=== PATIENT | female | born 1945 | race Caucasian/White ===

== ENCOUNTER 2020-02-06 08:04 | Outpatient (CLI) | payer MEDICARE, SELFPAY ==
[2020-02-06 08:23] LABS: Basophils Absolute Auto 0.1 K/mm3 (0.0-0.1); Basophils Percent Auto 0.7 % (0.2-1.2); Eosinophils Absolute Auto 0.2 K/mm3 (0-0.3); Eosinophils Percent Auto 2.1 % (0-4.4); Hematocrit 41.2 % (37.0-47.0); Hemoglobin 12.9 g/dL (12.0-15.0); Immature Granulocyte Absolute 0.06 K/mm3 (0.00-0.031); Immature Granulocyte Percent A 0.6 % (0-0.5); Lymphocytes Absolute Auto 4.08 K/mm3 (0.9-3.2); Lymphocytes Percent Auto 37.7 % (18.3-44.2); Mean Corpuscular HGB Conc 31.3 g/dl (32-36); Mean Corpuscular Hemoglobin 29.3 pg (26-34); Mean Corpuscular Volume 93.4 fl (80-100); Monocytes Absolute Auto 1.1 K/mm3 (0.1-0.6); Monocytes Percent Auto 10.2 % (2.6-8.5); Neutrophils Absolute Auto 5.3 K/mm3 (1.3-6.7); Neutrophils Percent Auto 48.7 % (45.5-73.1); Platelet Count Result 319 k/mm3 (150-375); Red Blood Count 4.41 M/mm3 (4.2-5.4); Red Cell Distribution Width 13.9 % (11.5-14.5); White Blood Count 10.8 K/mm3 (4.5-10.0)
[2020-02-06 11:52] LABS: Alanine Aminotransferase 23 U/L (4-35); Alkaline Phosphatase 84 U/L (38-126); Aspartate Amino Transferase 27 U/L (14-36); Bilirubin,Total 0.6 mg/dL (0.2-1.3); Blood Urea Nitrogen 44 mg/dL (7-17); Carbon Dioxide 28 mmol/L (22-30); Chloride 99 mmol/L (98-107); Estimated Glomerular Filt Rate 44; Glucose 281 mg/dL (65-105); Lactate Dehydrogenase 307 U/L (313-618); Potassium 4.3 mmol/L (3.4-5.0); Sodium 135 mmol/L (137-145)
== END 2020-02-06 08:05 | disposition home or self-care (01) ==
LOC: ANHLAB 08:05
PROVIDERS: PCP Internal Medicine; Visit Provider Internal Medicine Hematology & Oncology
DX: C85.17 Unspecified B-cell lymphoma, spleen (principal)
CPT/HCPCS: 36415; 80053; 83615; 85025

== ENCOUNTER 2020-08-08 08:32 | Outpatient (CLI) | payer MEDICARE, SELFPAY ==
[2020-08-08 09:36] LABS: Basophils Absolute Auto 0.1 K/mm3 (0.0-0.1); Basophils Percent Auto 0.7 % (0.2-1.2); Eosinophils Absolute Auto 0.2 K/mm3 (0-0.3); Hematocrit 41.2 % (37.0-47.0); Immature Granulocyte Absolute 0.06 K/mm3 (0.00-0.031); Immature Granulocyte Percent A 0.5 % (0-0.5); Lymphocytes Absolute Auto 3.79 K/mm3 (0.9-3.2); Lymphocytes Percent Auto 32.2 % (18.3-44.2); Mean Corpuscular HGB Conc 31.6 g/dl (32-36); Mean Corpuscular Hemoglobin 28.4 pg (26-34); Mean Corpuscular Volume 90.2 fl (80-100); Mean Platelet Volume 10.8 fl (7.4-10.4); Monocytes Absolute Auto 1.2 K/mm3 (0.1-0.6); Monocytes Percent Auto 9.9 % (2.6-8.5); Neutrophils Absolute Auto 6.4 K/mm3 (1.3-6.7); Neutrophils Percent Auto 54.7 % (45.5-73.1); Nucleated Red Blood Cells Perc 0.2 % (0.0-0.2); Platelet Count Result 329 k/mm3 (150-375); Red Blood Count 4.57 M/mm3 (4.2-5.4); Red Cell Distribution Width 14.2 % (11.5-14.5); White Blood Count 11.8 K/mm3 (4.5-10.0)
[2020-08-08 10:23] LABS: Alanine Aminotransferase 26 U/L (4-35); Alkaline Phosphatase 85 U/L (38-126); Anion Gap 10 mmol/L (8-16); Aspartate Amino Transferase 35 U/L (14-36); Bilirubin,Total 0.6 mg/dL (0.2-1.3); Blood Urea Nitrogen 23 mg/dL (7-17); Calcium 10.5 mg/dL (8.4-10.2); Carbon Dioxide 27 mmol/L (22-30); Chloride 99 mmol/L (98-107); Estimated Glomerular Filt Rate > 60; Glucose 267 mg/dL (65-105); Lactate Dehydrogenase 393 U/L (313-618); Potassium 4.9 mmol/L (3.4-5.0); Sodium 136 mmol/L (137-145)
== END 2020-08-08 08:33 | disposition home or self-care (01) ==
PROVIDERS: PCP Internal Medicine; Visit Provider Internal Medicine Hematology & Oncology
DX: C85.17 Unspecified B-cell lymphoma, spleen (principal)
CPT/HCPCS: 36415; 80053; 83615; 85025

== ENCOUNTER 2021-02-06 08:21 | Outpatient (CLI) | payer MEDICARE, SELFPAY ==
[2021-02-06 08:37] LABS: Basophils Absolute Auto 0.1 K/mm3 (0.0-0.1); Basophils Percent Auto 0.9 % (0.2-1.2); Eosinophils Absolute Auto 0.3 K/mm3 (0-0.3); Eosinophils Percent Auto 2.6 % (0-4.4); Hematocrit 40.9 % (37.0-47.0); Hemoglobin 12.8 g/dL (12.0-15.0); Immature Granulocyte Absolute 0.07 K/mm3 (0.00-0.031); Immature Granulocyte Percent A 0.6 % (0-0.5); Lymphocytes Absolute Auto 2.99 K/mm3 (0.9-3.2); Lymphocytes Percent Auto 27.1 % (18.3-44.2); Mean Corpuscular HGB Conc 31.3 g/dl (32-36); Mean Corpuscular Hemoglobin 27.3 pg (26-34); Mean Corpuscular Volume 87.2 fl (80-100); Monocytes Absolute Auto 1.2 K/mm3 (0.1-0.6); Neutrophils Absolute Auto 6.4 K/mm3 (1.3-6.7); Neutrophils Percent Auto 57.8 % (45.5-73.1); Platelet Count Result 382 k/mm3 (150-375); Red Blood Count 4.69 M/mm3 (4.2-5.4); Red Cell Distribution Width 14.7 % (11.5-14.5)
[2021-02-06 12:12] LABS: Alanine Aminotransferase 77 U/L (4-35); Albumin Level 3.8 g/dL (3.5-5.1); Alkaline Phosphatase 112 U/L (38-126); Anion Gap 7 mmol/L (8-16); Aspartate Amino Transferase 57 U/L (14-36); Bilirubin,Total 0.5 mg/dL (0.2-1.3); Blood Urea Nitrogen 25 mg/dL (7-17); Calcium 10.1 mg/dL (8.4-10.2); Carbon Dioxide 32 mmol/L (22-30); Chloride 99 mmol/L (98-107); Estimated Glomerular Filt Rate 54; Glucose 336 mg/dL (65-105); Lactate Dehydrogenase 412 U/L (313-618); Potassium 4.4 mmol/L (3.4-5.0); Sodium 138 mmol/L (137-145)
== END 2021-02-06 08:22 | disposition home or self-care (01) ==
LOC: ANHLAB 08:23
PROVIDERS: PCP Internal Medicine; Visit Provider Internal Medicine Hematology & Oncology
DX: C85.17 Unspecified B-cell lymphoma, spleen (principal)
CPT/HCPCS: 36415; 80053; 83615; 85025

== ENCOUNTER 2021-08-06 14:32 | Outpatient (CLI) | payer MEDICARE, SELFPAY ==
[2021-08-06 14:57] LABS: Basophils Absolute Auto 0.1 K/mm3 (0.0-0.1); Basophils Percent Auto 0.7 % (0.2-1.2); Eosinophils Absolute Auto 0.3 K/mm3 (0-0.3); Eosinophils Percent Auto 2.3 % (0-4.4); Hematocrit 42.8 % (37.0-47.0); Hemoglobin 13.2 g/dL (12.0-15.0); Immature Granulocyte Absolute 0.06 K/mm3 (0.00-0.031); Immature Granulocyte Percent A 0.5 % (0-0.5); Lymphocytes Absolute Auto 3.91 K/mm3 (0.9-3.2); Lymphocytes Percent Auto 32.5 % (18.3-44.2); Mean Corpuscular HGB Conc 30.8 g/dl (32-36); Mean Corpuscular Hemoglobin 27.3 pg (26-34); Mean Corpuscular Volume 88.6 fl (80-100); Mean Platelet Volume 10.6 fl (7.4-10.4); Monocytes Absolute Auto 1.4 K/mm3 (0.1-0.6); Monocytes Percent Auto 11.5 % (2.6-8.5); Neutrophils Absolute Auto 6.3 K/mm3 (1.3-6.7); Neutrophils Percent Auto 52.5 % (45.5-73.1); Platelet Count Result 365 k/mm3 (150-375); Red Blood Count 4.83 M/mm3 (4.2-5.4); Red Cell Distribution Width 14.6 % (11.5-14.5)
[2021-08-06 17:23] LABS: Alanine Aminotransferase 28 U/L (4-35); Albumin Level 4.3 g/dL (3.5-5.1); Alkaline Phosphatase 99 U/L (38-126); Anion Gap 9 mmol/L (8-16); Aspartate Amino Transferase 63 U/L (14-36); Bilirubin,Total 0.5 mg/dL (0.2-1.3); Blood Urea Nitrogen 27 mg/dL (7-17); Calcium 10.2 mg/dL (8.4-10.2); Carbon Dioxide 31 mmol/L (22-30); Chloride 100 mmol/L (98-107); Estimated Glomerular Filt Rate > 60; Glucose 175 mg/dL (65-110); Lactate Dehydrogenase 389 U/L (313-618); Potassium 4.1 mmol/L (3.4-5.0); Sodium 140 mmol/L (137-145)
== END 2021-08-06 14:33 | disposition home or self-care (01) ==
LOC: ANHLAB 14:33
PROVIDERS: PCP Internal Medicine; Visit Provider Internal Medicine Hematology & Oncology
DX: C85.17 Unspecified B-cell lymphoma, spleen (principal)
CPT/HCPCS: 36415; 80053; 83615; 85025

== ENCOUNTER 2021-11-04 16:02 | Emergency (ER) | payer MEDICARE, SELFPAY ==
--- NOTE | ~2021-11-04 | XR_ITS ---
EXAMINATION: XR chest 2V DATE: 11/04/2021 16:34 INDICATION: Chest pain. Cough. Fever. TECHNIQUE: Frontal and lateral views of the chest were obtained. COMPARISON: Chest single view 11/21/2017, chest CT 08/02/2019 FINDINGS: There are airspace opacities in the lower lung zones. No pleural effusion or pneumothorax. The heart size is normal. IMPRESSION: 1. Airspace opacities in the lower lung zones with worsening on the right from 11/21/2017, consistent with pneumonia versus chronic lung disease. Reviewed, dictated and finalized at location A. [facility]
[2021-11-04 16:06] VITALS: BP 151/67; PULSE 98; RESP 20; TEMP 36.7; O2SAT 99
--- NOTE | 2021-11-04 16:09 | ECG_ITS ---
Measurements Intervals [place] Rate: 94 P: 26 TN: 152 QRS: -38 QRSD: 118 T: 51 QT: 356 QTc: 445 Interpretive Statements SINUS RHYTHM LEFT AXIS DEVIATION INCOMPLETE LEFT BUNDLE BRANCH BLOCK BORDERLINE R WAVE PROGRESSION, ANTERIOR LEADS BASELINE ARTIFACT- I, III, AVR, AVL ABNORMAL ECG Electronically Signed On 11-04-2021 16:18:33 CASH APPLICATIONS SPECIALIST by Maicol Nguyen D.O.
[2021-11-04 19:11] VITALS: BP 136/63; PULSE 85; TEMP 35.9; O2SAT 98
[2021-11-04 19:34] LABS: Basophils Absolute Auto 0.1 K/mm3 (0.0-0.1); Basophils Percent Auto 0.3 % (0.2-1.2); Eosinophils Percent Auto 0.1 % (0-4.4); Hematocrit 30.9 % (37.0-47.0); Hemoglobin 10.1 g/dL (12.0-15.0); Immature Granulocyte Absolute 1.07 K/mm3 (0.00-0.031); Immature Granulocyte Percent A 5.3 % (0-0.5); Lymphocytes Absolute Auto 3.53 K/mm3 (0.9-3.2); Lymphocytes Percent Auto 17.5 % (18.3-44.2); Mean Corpuscular HGB Conc 32.7 g/dl (32-36); Mean Corpuscular Hemoglobin 25.8 pg (26-34); Mean Corpuscular Volume 78.8 fl (80-100); Mean Platelet Volume 10.2 fl (7.4-10.4); Monocytes Absolute Auto 3.4 K/mm3 (0.1-0.6); Monocytes Percent Auto 16.8 % (2.6-8.5); Nucleated Red Blood Cells Absolute Auto 0.1 K/mm3 (0.0-0.012); Nucleated Red Blood Cells Perc 0.2 % (0.0-0.2); Platelet Count Result 531 k/mm3 (150-375); Red Blood Count 3.92 M/mm3 (4.2-5.4); Red Cell Distribution Width 15.6 % (11.5-14.5); White Blood Count 20.1 K/mm3 (4.5-10.0)
[2021-11-04 19:45] LABS: Partial Thromboplastin Time 27.4 SECONDS (22.3-36.8)
[2021-11-04 19:46] LABS: Alanine Aminotransferase 60 U/L (4-35); Albumin Level 3.3 g/dL (3.5-5.1); Alkaline Phosphatase 259 U/L (38-126); Anion Gap 7 mmol/L (8-16); Aspartate Amino Transferase 75 U/L (14-36); Bilirubin,Total 1.3 mg/dL (0.2-1.3); Blood Urea Nitrogen 30 mg/dL (7-17); Calcium 10.6 mg/dL (8.4-10.2); Carbon Dioxide 30 mmol/L (22-30); Chloride 94 mmol/L (98-107); Estimated CRCL calculation 42 ml/min; Estimated Glomerular Filt Rate 49; Glucose 251 mg/dL (65-110); Lipase 96 U/L (23-300); Potassium 4.6 mmol/L (3.4-5.0); Sodium 131 mmol/L (137-145)
[2021-11-04 19:51] LABS: INR 1.1; Prothrombin Time 14.5 Seconds (11.1-14.7)
[2021-11-04 19:58] LABS: Troponin I < 0.012 ng/mL (0.000-0.034)
[2021-11-04 22:28] VITALS: BP 140/63; PULSE 89; O2SAT 98
[2021-11-04 23:15] LABS: Troponin I < 0.012 ng/mL (0.000-0.034)
[2021-11-05 01:45] VITALS: BP 130/60; PULSE 88; RESP 18; O2SAT 98
--- NOTE | 2021-11-05 02:01 | PC.NURSE ---
daughter arrives in triage to take pt home. pt and family tired for wait. vs stable. no resp distress. encouraged to return if symptoms change or worsen
== END 2021-11-05 02:18 | disposition left against medical advice (07) ==
PROVIDERS: Emergency Medicine; Emergency Provider Family Medicine; PCP Internal Medicine
DX: R07.9 Chest pain, unspecified (principal)
CPT/HCPCS: 36415; 71046; 80053; 83690; 84484; 85025; 85610; 85730; 93005; 99199

== ENCOUNTER 2021-12-10 20:24 | Inpatient (IN) | payer MEDICARE, SELFPAY ==
--- NOTE | ~2021-12-10 | BM_ITS ---
EXAMINATION: CCL bone marrow asp w bx diag DATE: 12/14/2021 10:09 INDICATION: Recurrent stage IV lymphoma. TECHNIQUE: A time-out was performed to verify the patient's name, date of , and procedure to b e performed. The procedure including the risks, benefits, and alternatives was discussed with the pat ient. Risks discussed included bleeding and infection. The patient understood the risks and agreed to proceed. The skin overlying the left ilium was prepped and draped in usual sterile fashion. Anesth etic was administered with 1% lidocaine subcutaneously. An 11 gauge needle was inserted into the iliu m with fluoroscopic guidance. Bone marrow was aspirated. An 8 gauge needle was then inserted into the ilium with fluoroscopic guidance. A core bone marrow biopsy was obtained. There were no immediate co mplications. Fluoroscopy exposure time was 0.1 minutes. The total number of images was 34. FINDINGS: Real-time fluoroscopy demonstrates a marker overlying the left posterior superior iliac spi ne. IMPRESSION: 1. Fluoro-guided bone marrow aspiration. 2. Fluoro-guided bone marrow core biopsy. Reviewed, dictated and finalized at location A. ECT MANAGEMENT INSTRUCTOR
--- NOTE | ~2021-12-10 | CT_ITS ---
EXAMINATION: CT abdomen pelvis w con DATE: 12/10/2021 22:09 INDICATION: Low abdominal pain. TECHNIQUE: Computed tomography (CT) of the abdomen and pelvis was performed with 100 mL Omnipaque 350 intravenous contrast. Automated exposure control and iterative reconstruction technique were employe d. The dose-length product was 1400.49 mGy-cm. COMPARISON: CT abdomen and pelvis 08/02/2019 FINDINGS: The visualized portions of the lung bases demonstrate small pleural effusions, left worse t trent right. There is mild dependent atelectasis on the left. The heart size is normal. No pericardial effusion. Again seen is a 3.3 x 1.7 cm mass in right breast, likely benign. The liver demonstrates a nodular surface contour, consistent with cirrhosis. The gallbladder is normal in size. The spleen is absent. The pancreas and adrenal glands are normal. There is cortical thinning of the kidneys. There are no dilated loops of bowel. The appendix is normal. There is a moderate volume of ascites. There a re bilateral inguinal hernias containing fat. There is right external iliac, right common iliac, aort ocaval, left para-aortic, periportal, and gastrohepatic lymphadenopathy. For example, a left para-aor tic node measures 3.9 x 2.5 cm that was previously normal. There is edema of the abdominal fat and cayden dy wall fat. There is severe thoracic and lumbar spondylosis. IMPRESSION: 1. Worsened abdominal and pelvic lymphadenopathy, consistent with lymphoma. 2. Cirrhosis of the liver. 3. Moderate volume of ascites. 4. Small pleural effusions. Reviewed, dictated and finalized at location E. [place] OPERATIONS MANAGER
--- NOTE | ~2021-12-10 | XR_ITS ---
EXAMINATION: XR chest 1V portable DATE: 12/13/2021 14:14 INDICATION: Dyspnea. TECHNIQUE: A single frontal view of the chest was obtained. COMPARISON: Chest 2 views 11/04/2021, CT abdomen and pelvis 08/09/2022 FINDINGS: There are airspace opacities in the mid and lower lung zones with a basilar predominance. N o pleural effusion or pneumothorax. The heart size is normal. There is widening of the superior media stinum. IMPRESSION: 1. Airspace opacities in the mid and lower lung zones with a basilar predominance, consistent with at electasis or less likely pneumonia. 2. Widening of the superior mediastinum suspicious for lymphadenopathy. Reviewed, dictated and finalized at location A. ATRIC SOCIAL WORKER IMPRESSION: 1. Airspace opacities in the mid and lower lung zones with a basilar predominan ce, consistent with atelectasis or less likely pneumonia. 2. Widening of the superior mediastinum suspicious for lymphadenopathy.
--- NOTE | ~2021-12-10 | US_ITS ---
EXAMINATION: US abdomen limited DATE: 12/12/2021 10:37 INDICATION: Ascites TECHNIQUE: Multiple grayscale and Doppler ultrasound images of the abdomen were obtained. COMPARISON: CT, 12/10/2021 FINDINGS: Patient presents for diagnostic paracentesis. Real-time scanning demonstrates a small amoun t of ascites. This was discussed with Dr. Hoang and it was felt that the risks of the procedure outw eighed the benefits. Therefore, paracentesis was not performed. IMPRESSION: 1. Small volume of ascites. Reviewed, dictated and finalized at location A. ACKUP ENGINEER IMPRESSION: 1. Small volume of ascites.
--- NOTE | ~2021-12-10 | US_ITS ---
EXAMINATION: US carotid duplex BI DATE: 12/14/2021 08:27 INDICATION: Syncope. TECHNIQUE: Grayscale, color Doppler, and pulsed Doppler images of the cervical carotid arteries were obtained. The degree of vessel stenosis is placed in one of the following categories: normal, <50%, 5 0-69%, >=70% but less than near-occlusion, near-occlusion, or total occlusion. Note that percent sten osis relative to normal distal artery lumen diameter is indirectly measured from velocity measurement s as described by Narinder, et al. Radiology 2003; 229:340-346. COMPARISON: None. FINDINGS: RIGHT: The right common carotid artery (CCA) peak systolic velocity (PSV) is 70 cm/s. The right internal car otid artery (ICA) PSV is 48 cm/s. The right ICA end-diastolic velocity (EDV) is 9 cm/s. The right ICA /CCA PSV ratio is 0.7. Grayscale and color Doppler images yield an estimate of <50% diameter reductio n from plaque in the ICA. There is antegrade flow in the right vertebral artery. LEFT: The left CCA PSV is 90 cm/s. The left ICA PSV is 84 cm/s. The left ICA EDV is 17 cm/s. The left ICA/C CA PSV ratio is 0.9. Grayscale and color Doppler images yield an estimate of <50% diameter reduction from plaque in the ICA. There is antegrade flow in the left vertebral artery. IMPRESSION: 1. <50% stenosis in the right internal carotid artery. 2. <50% stenosis in the left internal carotid artery. Reviewed, dictated and finalized at location A. NING TECHNOLOGIST
--- NOTE | ~2021-12-10 | CT_ITS ---
EXAMINATION: CT brain wo con DATE: 12/10/2021 22:08 INDICATION: Unresponsive. TECHNIQUE: Computed tomography (CT) of the head was performed without intravenous contrast. The mA wa s adjusted according to patient size. Iterative reconstruction technique was employed. The dose-lengt h product was 605.33 mGy-cm. COMPARISON: Head CT 11/22/2017 FINDINGS: There is no intracranial hemorrhage, acute infarction, or abnormal intracranial mass lesion . The ventricles are normal in size. The orbits are normal. There is mild mucosal thickening in the p aranasal sinuses. The mastoid air cells are normal. IMPRESSION: 1. Normal brain. Reviewed, dictated and finalized at location E. DITIONARY FIGHTING VEHICLE CREWMAN IMPRESSION: 1. Normal brain.
[2021-12-10 20:41] VITALS: BP 162/57; PULSE 90; RESP 22; TEMP 36.8; O2SAT 99
[2021-12-10 20:47] VITALS: O2SAT 95
--- NOTE | 2021-12-10 21:07 | PC.NURSE ---
family reports she was unresponsive at home
--- NOTE | 2021-12-10 21:11 | ECG_ITS ---
Measurements Intervals [place] Rate: 79 P: 23 TN: 139 QRS: -15 QRSD: 122 T: 36 QT: 408 QTc: 469 Interpretive Statements SINUS RHYTHM INTRAVENTRICULAR CONDUCTION DELAY DELAYED PRECORDIAL R/S TRANSITION BORDERLINE ECG Electronically Signed On 12-11-2021 6:26:03 POWER PLANT OPERATORS SUPERVISOR by Maicol Nguyen D.O.
[2021-12-10 21:26] LABS: Basophils Percent Auto 0.2 % (0.2-1.2); Eosinophils Percent Auto 0.1 % (0-4.4); Hematocrit 23.8 % (37.0-47.0); Hemoglobin 7.7 g/dL (12.0-15.0); Immature Granulocyte Absolute 0.23 K/mm3 (0.00-0.031); Immature Granulocyte Percent A 2.5 % (0-0.5); Immature Platelet Fraction Pct 15.3 % (0.9-11.2); Lymphocytes Absolute Auto 2.66 K/mm3 (0.9-3.2); Lymphocytes Percent Auto 28.8 % (18.3-44.2); Mean Corpuscular HGB Conc 32.4 g/dl (32-36); Mean Corpuscular Hemoglobin 26.6 pg (26-34); Mean Corpuscular Volume 82.4 fl (80-100); Monocytes Absolute Auto 0.8 K/mm3 (0.1-0.6); Monocytes Percent Auto 9.1 % (2.6-8.5); Neutrophils Absolute Auto 5.5 K/mm3 (1.3-6.7); Neutrophils Percent Auto 59.3 % (45.5-73.1); Nucleated Red Blood Cells Absolute Auto 0.1 K/mm3 (0.0-0.012); Platelet Count Result 102 k/mm3 (150-375); Red Blood Count 2.89 M/mm3 (4.2-5.4); Red Cell Distribution Width 22.8 % (11.5-14.5); White Blood Count 9.3 K/mm3 (4.5-10.0)
[2021-12-10 21:34] LABS: Alanine Aminotransferase 40 U/L (4-35); Albumin Level 2.2 g/dL (3.5-5.1); Alkaline Phosphatase 623 U/L (38-126); Anion Gap 1 mmol/L (8-16); Aspartate Amino Transferase 68 U/L (14-36); Bilirubin,Total 3.9 mg/dL (0.2-1.3); Blood Urea Nitrogen 26 mg/dL (7-17); Calcium 8.3 mg/dL (8.4-10.2); Carbon Dioxide 31 mmol/L (22-30); Chloride 99 mmol/L (98-107); Estimated CRCL calculation 66 ml/min; Estimated Glomerular Filt Rate > 60; Glucose 199 mg/dL (65-110); Lipase 103 U/L (23-300); Potassium 3.6 mmol/L (3.4-5.0); Sodium 131 mmol/L (137-145)
--- NOTE | 2021-12-10 21:37 | ED.ABDPAIN ---
HPI - Abdominal Pain General Chief Complaint: Abdominal Pain Stated Complaint: WEAKNESS, ABD PAIN, COVID 20 DAYS AGO Time Seen by Provider: 12/10/21 20:57 Source: patient History of Present Illness HPI narrative: Patient for a brief period of unresponsiveness. Patient was recently diagnosed with return of her lymphoma she was complaining of abdominal pain family gave her hydrocodone shortly after she was unresponsive they called EMS arrival patient had to wake up. And she was transferred to the ER for further evaluation. Patient reports she feels well now she denies any abdominal pain. Earlier today she had no concerns she denies any recent fevers, cough, congestion, shortness of breath, chest pain. Related Data Home Medications Medication Instructions Recorded Confirmed furosemide [Lasix] 20 mg PO DAILY 08/17/19 12/11/21 iqotfzopqsyv-opaq-yiabr acid 1 tablet PO DAILY 08/17/19 12/11/21 [Centrum] hydrocodone-acetaminophen See Rx Instructions .ROUTE 12/11/21 12/11/21 .COMPLEX PRN metoprolol succinate [Toprol XL] 50 mg PO DAILY 12/11/21 12/11/21 pantoprazole [Protonix] 40 mg PO DAILY 12/11/21 12/11/21 zinc oxide 1 applic TOPICAL QID PRN 12/11/21 12/11/21 Allergies Allergy/AdvReac Type Severity Reaction Status Date / Time No Known Allergies Allergy Unverified 10/08/19 16:30 Review of Systems Review of Systems: CONSTITUTIONAL: Denies fever, chills, or sweats. EYES: Denies visual changes, redness, or discharge. ENT: Denies rhinorrhea, congestion, sore throat, or otalgia. CARDIOVASCULAR: Denies chest pain, palpitations, or edema. RESPIRATORY: Denies cough or dyspnea. GASTROINTESTINAL: Denies abdominal pain, nausea, vomiting, or diarrhea. GENITOURINARY: Denies dysuria or hematuria. SKIN: Denies rash or itching. MUSCULOSKELETAL: Denies back pain, joint pain, or myalgia. NEUROLOGIC: Denies headache, numbness, dizziness, or weakness. PSYCHIATRIC: Denies anxiety or depression. All systems reviewed & are unremarkable except as noted in HPI and below PMFSH Family History Family History Other Diabetes mellitus Family history of elevated blood lipids Hypertension Social History Social History Smoking status: Never smoker Alcohol intake: never Exam Narrative: GENERAL: Well-appearing, well-nourished, and in no acute distress. HEAD: Normocephalic, atraumatic. EYES: PERRLA and EOMI. ENT: Nares clear, no rhinorrhea or epistaxis. Mucous membranes moist. NECK: Supple. No masses. No JVD CHEST: Clear to auscultation. No respiratory distress. No wheezes rales or rhonchi HEART: Regular rate and rhythm. No murmur heard. Normal peripheral pulses. ABDOMEN: Soft, nontender, nondistended, normal active bowel sounds. EXTREMITIES: Normal range of motion. No edema. SKIN: Warm, dry, no rash. NEURO: No focal deficits. Alert and oriented x3. PSYCH: Normal mood and affect. Course Reevaluation(s) Reevaluation #1: Patient is resting comfortably results of work-up reviewed with patient and family. Case also discussed with Dr. Tam. Patient is CBC does appear to be stable patient did have recent transfusions this week. Imaging shows ascites likely chronic may be contributing to patient's pain and likely related to patient's lymphoma. With stable findings patient is appropriate continued outpatient work-up with lymphoma. Family is comfortable with outpatient plan Just prior to discharge patient was concerned about their ability to care for the patient. Patient had difficult time assisting family members with sitting up and getting to a wheelchair. Due to family's concern patient will be admitted for weakness. Date: 12/11/21 Time: 01:13 Vital Signs Vital signs: Vital Signs Temperature 36.8 C 12/10/21 20:41 Pulse Rate 90 12/10/21 20:41 Respiratory Rate 22 H 12/10/21 20:41 Blood Pressure 162/57 H 12/01
[2021-12-10 22:20] LABS: Add Urine Microscopic? YES; Appearance Urine Clear (Clear); Bilirubin Urine Negative (Negative); Blood Urine Negative (Negative); Color Urine Amber (Yellow); Glucose Urine UA Negative (Negative); Ketones Urine Negative (Negative); Leukocyte Esterase Ur Negative LEU/UL (Negative); Nitrate Urine Negative (Negative); Protein Urine Negative (Negative); Urobilinogen Urine Negative mg/dL (<2.0)
[2021-12-10 22:26] VITALS: BP 133/60; PULSE 82; RESP 22; O2SAT 97
[2021-12-11] VITALS (11 sets, daily range): BP systolic 129–157; BP diastolic 53–109; PULSE 80–97; RESP 20–56; TEMP 36.4–37.3; O2SAT 90–98; BMI 34.4
--- NOTE | 2021-12-11 02:18 | PC.NURSE ---
attempted to discharge patient very drowsy opens eye does not answer questions family at bedside attempting to get family to help take patient into house.
[2021-12-11 04:04] LABS: SARS-CoV-2 RNA PCR Positive
--- NOTE | 2021-12-11 06:56 | ADMGEN ---
This patient, Denia Soria, was admitted to Medical Room 254-01. Patient/family oriented to hospital policies and general routines including ID bracelet, bed and alarms, visiting hours, pain management, procedures, bathroom and other care routines, personal items, smoking policy, room service/diet, and visiting hours. Information on how to activate the Rapid Response Team has been discussed. Patient/Family are encouraged to report perceived risks to care and to ask questions if they do not understand what they are told or what they should do.
[2021-12-11] MEDS: SODIUM CHLORIDE 0.9% IV 1,000 ML 125 ML IV CONT (06:58)
--- NOTE | 2021-12-11 09:14 | PM.IMHP ---
H&P: HPI History of Present Illness Date/Time: 12/11/21 09:14 Denia was resting in bed this morning when I went to examine her and visit with her. She did seem confused and changed her answers often regarding her health history. She was unable to tell me if she lived at home or in assisted living and at one point said she lived at [place]. She has 3+ pitting edema to her lower extremities but is having no difficulty breathing. She denies any abdominal pain during my exam even with palpation. I called and spoke with her daughter Nya Almonte. Denia has been living at home, the same home she has been in for 60+ years with her , the same home that she built with her . Her approximately 20 years ago. Nya her daughter had moved home to take care of her father and continues living with her mother. Denia spent 20 days inpatient at [facility] in [place] for COVID related issues. She was discharged a few days ago and has been home with Nya. The family has arranged 24 hour 7 day a week care for Denia, within her own home, plus home health PT, OT, RN also started after discharge from [facility] and they want to continue having home health come out. Yesterday, Denia complained of abdominal pain and [facility] had sent her home with [place] for abdominal pain. So the family gave her a dose, and she became so lethargic and unconscious and unresponsive, that the family brought her to the ER here. According to Nya, Denia has never been to a liver specialist for her cirrhosis or ascites. Denia does not drink alcohol of any form at all. She has no history of stroke or heart attack. She was sent home from [facility] on 20 mg of Lasix daily. Patient will have daily neuro evaluations by nursing staff, placed on fall risk and aspiration precautions, ordered a swallow evaluation with speech therapy, daily weights and strict I/O's. Her CT Imaging at admission to the ER showed Normal brain.Abdomen/Pelvis CT showed Worsened abdominal and pelvic lymphadenopathy, consistent with lymphoma. Cirrhosis of the liver.Moderate volume of ascites.Small pleural effusions. She is getting over COVID and a long hospitalization, checking a BNP and diurese. Consulted GI due to her cirrhosis of the liver, lethargy and weakness, elevated liver enzymes, and ascites. I continued her Lasix and will give her an extra dose today. Also consulted Oncology due to her worsening lymphadenopathy and return of lymphoma. UA clear, WBC 9.3, no fevers, no wounds or noted sources of infections. Will diurese with lasix 40 mg IV x1, place indwelling Valdivia catheter. Chief Complaint: Syncope, Ascites, Anemia, Cirrhosis of Liver Review of Systems Review of Systems: All systems reviewed & are unremarkable except as noted in HPI and below Constitutional: Constitutional: Reports as per HPI, Reports daytime sleepiness, Denies excessive sweating, Denies headache(s), Denies increased appetite, Reports lethargy, Reports malaise, Reports poor appetite, Denies snoring, Reports weakness and Denies weight gain Eyes: Eyes: Denies exophthalmos, Denies diplopia, Denies floaters and Denies loss of peripheral vision ENT: Reports Normal hearing present, Denies facial pain, Denies headache(s), Denies epistaxis, Denies odynophagia and Denies tinnitus Cardiovascular: Cardiovascular: Reports as per HPI, Reports pedal edema and Reports leg edema Respiratory: Respiratory: Reports dyspnea and Denies snoring Gastrointestinal: Gastrointestinal: Reports as per HPI, Reports abdominal pain, Denies melena and Denies odynophagia Genitourinary: Genitourinary: Reports as per HPI Musculoskeletal: Musculoskeletal: Reports as per HPI Integumentary/Breasts: Skin/Breast: Reports as per HPI Neurologic: Reports as per HPI and Denies headache(s) Psychiatric: Psychiatric: Reports as per HPI Endocrine: Endocrine: Denies excessive sweating PMFSH Family History F
[2021-12-11 10:26] LABS: Hematocrit 24.8 % (37.0-47.0); Hemoglobin 8.1 g/dL (12.0-15.0); Immature Platelet Fraction Pct 16.2 % (0.9-11.2); Mean Corpuscular HGB Conc 32.7 g/dl (32-36); Mean Corpuscular Hemoglobin 26.9 pg (26-34); Mean Corpuscular Volume 82.4 fl (80-100); Platelet Count Result 106 k/mm3 (150-375); Red Blood Count 3.01 M/mm3 (4.2-5.4); Red Cell Distribution Width 23.2 % (11.5-14.5); White Blood Count 9.8 K/mm3 (4.5-10.0)
[2021-12-11 10:42] LABS: Alanine Aminotransferase 35 U/L (4-35); Albumin Level 2.2 g/dL (3.5-5.1); Alkaline Phosphatase 506 U/L (38-126); Anion Gap 2 mmol/L (8-16); Aspartate Amino Transferase 60 U/L (14-36); Blood Urea Nitrogen 24 mg/dL (7-17); Calcium 8.1 mg/dL (8.4-10.2); Carbon Dioxide 28 mmol/L (22-30); Chloride 103 mmol/L (98-107); Estimated CRCL calculation 59 ml/min; Estimated Glomerular Filt Rate > 60; Glucose 192 mg/dL (65-110); Sodium 133 mmol/L (137-145)
[2021-12-11 13:48] LABS: Hematocrit 22.3 % (37.0-47.0); Hemoglobin 7.2 g/dL (12.0-15.0)
[2021-12-11 13:55] LABS: Magnesium 2.2 mg/dL (1.6-2.3); Phosphorus 3.2 mg/dL (2.5-4.5)
[2021-12-11 13:56] LABS: Ammonia < 9 umol/L (9-30)
--- NOTE | 2021-12-11 13:57 | PCOTNOTE ---
Attempted to see pt. for evaluation. Pt laying in bed and refused to participate.
[2021-12-11] MEDS: FUROSEMIDE INJ 40 MG/4 ML VIAL IV PUSH (14:27)
[2021-12-11] MEDS: LIDOCAINE 5% PATCH 3 PATCH TRANSDERM (14:27)
[2021-12-11 15:24] LABS: INR 1.6; Prothrombin Time 18.2 Seconds (11.1-14.7)
[2021-12-11 16:35] LABS: CRP 8.3 mg/dL (<1.0); Lactate Dehydrogenase 417 U/L (313-618)
[2021-12-11 16:38] LABS: NT Pro B Type Natriuretic Pept 4060 pg/mL (5-100)
--- NOTE | 2021-12-11 16:51 | WPDGICN ---
Assessment and Plan Assessment and plan (1) Decompensation of cirrhosis of liver: Code(s): K72.90 - Hepatic failure, unspecified without coma; K74.60 - Unspecified cirrhosis of liver Status: Acute Assessment and Plan: she had a recent prolonged hospitalization for COVID at another facility, probably could be lingering problems related to COVID in this patient who is immunocompromised (cirrhosis, h/o lymphoma with more enlarged lymph nodes noted by CT scan) we had to rule out infection, will get paracentesis to check if sbp also get hepatitis panel meld score 17 will be nice to get more records about recent hospitalization and previous history (2) Abdominal ascites: Qualifiers: Ascites type: other type Qualified Code(s): R18.8 - Other ascites Code(s): R18.8 - Other ascites Status: Acute Assessment and Plan: get paracentesis and check for sbp start low dose of diuretics (3) COVID-19: Code(s): U07.1 - COVID-19 Status: Acute Assessment and Plan: recent infection, risk for complications (4) Abdominal pain: Code(s): R10.9 - Unspecified abdominal pain Status: Acute Assessment and Plan: one of the reasons for admission (5) Lymphoma: Code(s): C85.90 - Non-Hodgkin lymphoma, unspecified, unspecified site Status: Acute Assessment and Plan: get LDH, we do not have a lot of information (6) Elevated liver enzymes: Code(s): R74.8 - Abnormal levels of other serum enzymes Status: Acute (7) Encephalopathy acute: Code(s): G93.40 - Encephalopathy, unspecified Status: Acute Assessment and Plan: amonia normal but given decompensated cirrhosis, will start on lactulose to see if will help with mentation (8) Anemia: Qualifiers: Anemia type: unspecified type Qualified Code(s): D64.9 - Anemia, unspecified Code(s): D64.9 - Anemia, unspecified Status: Acute Assessment and Plan: multifactorial probably from cirrhosis, lymphoma, recent covid infection, etc no overt gib but will monitor GI Consult Note Consult date/time: 12/11/21 16:51 HPI: Denia Soria is a 76 year old female with history of cirrhosis, lymphoma and recent hospitalization at [facility] for almost 20 days because COVID (I do not have records and patient is lethargic now). She was sent home with home health, apparently she complained of more abdominal pain then given narcotic and found to be more lethargic, taken to ER. CT scan a/p reviewed, showed worsened abdominal and pelvic lymphadenopathy, consistent with lymphoma, cirrhosis of the liver, moderate volume of ascites, small pleural effusions. Blood work inr 1.6, creat 0.8, bili 4, plat 106, hb 7.2. Valdivia catheter placed, she has leg edema and given diuretics. Amonia level normal. Review of Systems Review of Systems: ROS unobtainable: Yes unobtainable due to mental status PMFSH Past Medical History Medical History (Updated 12/11/21 @ 17:00 by Brice Ham MD) Abdominal pain COVID-19 Decompensation of cirrhosis of liver Elevated liver enzymes Encephalopathy acute Lymphoma Family History Family History Other Diabetes mellitus Family history of elevated blood lipids Hypertension Social History Social History Smoking status: Never smoker Second hand tobacco smoke exposure: No Alcohol intake: never Substance use: never Spiritual care concerns: Yes (Hoahaoism) Meds Home Medications and Allergies Home Medications Medication Instructions Recorded Confirmed Type furosemide [Lasix] 20 mg PO DAILY 08/17/19 12/11/21 History xbtnktngtabc-wlnu-ufbfg acid 1 tablet PO DAILY 08/17/19 12/11/21 History [Centrum] ferrous sulfate 142 mg PO DAILY 12/11/21 12/11/21 History hydrocodone-acetaminophen See Rx Instructions .ROUTE
[2021-12-11 17:08] LABS: Alveolar/Arterial O2 Gradient 44.7 mmHg; Fractional Inspired Oxygen 21 %; Oxygen Content ABG 10.4 %vol (16.0-22.0); Oxygen Saturation ABG 94.4 % (95.0-100.0); Oxyhemoglobin 90.3 % THb (90.0-100.0); PCO2 ABG 35.2 mmHg (35.0-45.0); PO2 ABG 62.9 mmHg (80.0-100.0); Total Hemoglobin 8.1 g/dL (12.0-18.0)
[2021-12-11 17:09] LABS: Device ROOM AIR; Modified Allen's Test Pass; Site Drawn RIGHT RADIAL; pH ABG 7.533 (7.350-7.450)
[2021-12-11] MEDS: KETOROLAC 15 MG/ML VIAL (*BKC) IV PUSH (17:38)
[2021-12-11] MEDS: LACTULOSE 20 GM/30 ML UDC PO (17:38)
--- NOTE | 2021-12-11 18:19 | PDONCCN ---
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 Patient also has a history of liver cirrhosis. She was recently discharged from the [facility] where she was admitted twice in last 2 months for pneumonia and UTI. She also had GI bleed and had colonoscopy done at [facility]. She received 2 units of packed red blood cell just 4 days ago for hemoglobin of 6.2. Nausea came back into the hospital with generalized weakness. She denies fevers and chills. She denies any bleeding including melena and hematochezia. She has been complaining of abdominal distention. Labs showed hemoglobin of 7.7 now dropped down to 7.2. Platelet count [id number]. WBC count normal at 9.8. Liver enzymes were elevated with elevated bilirubin and alkaline phosphatase. CT abdomen and pelvis showed worsened abdominal and pelvic lymphadenopathy consistent with lymphoma along with liver cirrhosis and moderate volume of ascites. There was 3.3 x 1.7 cm mass in the right breast. Review of Systems - Review of Systems All systems reviewed & are unremarkable except as noted in HPI and bel - Neurologic Reports hearing normal, Reports weakness, Denies headache(s) [facility] Medical History: Medical History (Last Updated 12/11/21 @ 17:00 by Brice Ham MD) Abdominal pain COVID-19 Decompensation of cirrhosis of liver Elevated liver enzymes Encephalopathy acute Lymphoma Family History: Family History (Last Reviewed 12/11/21 @ 14:40 by Sydnee Leiva NP) Other Diabetes mellitus Family history of elevated blood lipids Hypertension - Social History Social History: Social History (Last Reviewed 12/10/21 @ 21:39 by Torsten Whitten MD) Alcohol Use: Alcohol intake: never Substance Use: Substance use: never Others: Spiritual care concerns: Yes Spiritual care concerns comment: Baptism Smoking Status: Smoking status: Never smoker Second hand tobacco smoke exposure: No Meds Home Medications Medication Instructions Recorded Confirmed Type furosemide [Lasix] 20 mg PO DAILY 08/17/19 12/11/21 History afelqmrsxfxt-fpwm-rdean acid 1 tablet PO DAILY 08/17/19 12/11/21 History [Centrum] ferrous sulfate 142 mg PO DAILY 12/11/21 12/11/21 History hydrocodone-acetaminophen See Rx Instructions .ROUTE 12/11/21 12/11/21 History .COMPLEX PRN metoprolol succinate [Toprol XL] 50 mg PO DAILY 12/11/21 12/11/21 History pantoprazole [Protonix] 40 mg PO DAILY 12/11/21 12/11/21 History zinc oxide 1 applic TOPICAL QID PRN 12/11/21 12/11/21 History Allergies Allergy/AdvReac Type Severity Reaction Status Date / Time acetaminophen AdvReac Severe Loss of Verified 12/11/21 13:17 [From Panlor Consciousness (hydrocodone-acetamin)] hydrocodone AdvReac Severe Loss of Verified 12/11/21 13:17 [From Panlor Consciousness (hydrocodone-acetamin)] Results - Labs CBC & Chem 7: 12/11/21 13:28 12/11/21 10:07 Labs: Short CBC 12/10/21 12/11/21 12/11/21 Range/Units 21:16 10:07 13:28 WBC 9.3 9.8 (4.5-10.0) K/mm3 Hgb 7.7 L 8.1 L 7.2 L (12.0-15.0) g/dL Hct 23.8 L 24.8 L 22.3 L (37.0-47.0) % Plt Count 102 L D 106 L (150-375) k/mm3 BMP 12/10/21 12/11/21 21:16 10:07 Sodium 131 L 133 L Potassium 3.6 4.0 Chloride 99 103 Carbon Dioxide 31 H 28 BUN 26 H 24 H Creatinine 0.90 0.80 Glucose 199 H 192 H Calcium 8.3 L 8.1 L Liver Function 12/10/21 12/11/21 Range/Units 21:16 10:07 Total Bilirubin 3.9 H 4.0 H (0.2-1.3) mg/dL AST 68 H 60 H (14-36) U/L ALT 40 H 35 (4-35) U/L Alkaline Phosphatase 623 H 506
[2021-12-11 18:24] LABS: Ferritin > 2000.00 ng/mL (11.1-264)
[2021-12-12] VITALS (10 sets, daily range): BP systolic 125–150; BP diastolic 47–62; PULSE 78–94; RESP 18–20; TEMP 36.4–36.9; O2SAT 92–95
[2021-12-12 05:40] LABS: Basophils Percent Auto 0.1 % (0.2-1.2); Eosinophils Percent Auto 0.1 % (0-4.4); Hematocrit 22.4 % (37.0-47.0); Hemoglobin 7.2 g/dL (12.0-15.0); Immature Granulocyte Absolute 0.25 K/mm3 (0.00-0.031); Immature Granulocyte Percent A 2.6 % (0-0.5); Immature Platelet Fraction Pct 15.8 % (0.9-11.2); Lymphocytes Percent Auto 25.9 % (18.3-44.2); Mean Corpuscular HGB Conc 32.1 g/dl (32-36); Mean Corpuscular Hemoglobin 26.7 pg (26-34); Monocytes Absolute Auto 0.7 K/mm3 (0.1-0.6); Monocytes Percent Auto 7.4 % (2.6-8.5); Neutrophils Absolute Auto 6.2 K/mm3 (1.3-6.7); Neutrophils Percent Auto 63.9 % (45.5-73.1); Nucleated Red Blood Cells Absolute Auto 0.1 K/mm3 (0.0-0.012); Nucleated Red Blood Cells Perc 0.9 % (0.0-0.2); Platelet Count Result 101 k/mm3 (150-375); Red Cell Distribution Width 22.9 % (11.5-14.5); White Blood Count 9.7 K/mm3 (4.5-10.0)
[2021-12-12 05:49] LABS: Alanine Aminotransferase 36 U/L (4-35); Alkaline Phosphatase 468 U/L (38-126); Anion Gap 5 mmol/L (8-16); Aspartate Amino Transferase 45 U/L (14-36); Bilirubin,Total 3.8 mg/dL (0.2-1.3); Blood Urea Nitrogen 21 mg/dL (7-17); Calcium 8.1 mg/dL (8.4-10.2); Carbon Dioxide 31 mmol/L (22-30); Chloride 99 mmol/L (98-107); Estimated CRCL calculation 58 ml/min; Estimated Glomerular Filt Rate > 60; Glucose 156 mg/dL (65-110); Lactate Dehydrogenase 396 U/L (313-618); Potassium 3.3 mmol/L (3.4-5.0); Sodium 135 mmol/L (137-145)
[2021-12-12 05:55] LABS: NT Pro B Type Natriuretic Pept 4480 pg/mL (5-100)
[2021-12-12 06:36] LABS: Hepatitis B Surface Antigen Negative (Negative)
[2021-12-12 06:42] LABS: HAV RESULT Negative (Negative); Hepatitis B Core IgM Result Negative (Negative)
[2021-12-12 06:53] LABS: Iron 18 ug/dL (37-170)
[2021-12-12 06:54] LABS: Hepatitis C Virus Antibody Negative (Negative)
[2021-12-12 07:02] LABS: Percent Iron Saturation 14 % (20-50)
[2021-12-12 08:13] LABS: Platelet Estimate Decreased (Adequate); Target Cells 2+ (NORMAL)
[2021-12-12] MEDS: FERROUS SULFATE DRIED 142 MG TABCR PO (09:14)
[2021-12-12] MEDS: SPIRONOLACTONE 50 MG TABLET PO (09:14)
[2021-12-12] MEDS: METOPROLOL SUCCINATE EXT REL 50 MG TABCR PO (09:15)
[2021-12-12] MEDS: PANTOPRAZOLE 40 MG TABLET PO (09:15)
[2021-12-12] MEDS: FUROSEMIDE 20 MG TABLET PO (09:15)
[2021-12-12] MEDS: MULTIVITAMINS /C LUTEIN (CENTRUM SILVER) TABLET *BKC 1 TAB PO (09:15)
[2021-12-12] MEDS: POTASSIUM CHLORIDE 20 MEQ TABLET PO (09:18)
[2021-12-12] MEDS: LIDOCAINE 5% PATCH 3 PATCH TRANSDERM (09:18)
[2021-12-12] MEDS: LACTULOSE 20 GM/30 ML UDC PO ×2 (09:18→16:09)
--- NOTE | 2021-12-12 09:57 | PCSTNOTE ---
Attempted to see this patient in the morning for a bedside swallow evaluation. The patient took x1 pill with x1 sip of water without difficulty. RODDY Ortiz informed that she is not allowed to eat anything or drink more than a sip as she has testing to be completed now.
--- NOTE | 2021-12-12 11:24 | PCSTNOTE ---
Please refer to the Bedside Swallow Evaluation in the EMR. Please note, silent aspiration cannot be ruled out at bedside. Recommend Level 7 easy to chew and level [address] indicated.
--- NOTE | 2021-12-12 11:40 | WPDGIPROGNO ---
Progress Note: A&P Assessment and Plan (1) Decompensation of cirrhosis of liver: Code(s): K72.90 - Hepatic failure, unspecified without coma; K74.60 - Unspecified cirrhosis of liver Status: Acute Assessment and Plan: she had prolonged hospitalization after had COVID infection, also had colonoscopy at another hospital only small amount of ascites not enough to get paracentesis she seems more alert today, started on lactulose even though ammonia level was normal ? SHAFER cirrhosis, hepatitis panel negative will need follow-up with her gi specialist (2) Elevated liver enzymes: Code(s): R74.8 - Abnormal levels of other serum enzymes Status: Acute Assessment and Plan: CT scan reviewed, also noted progression on lymphoma oncology on board (3) Abdominal pain: Code(s): R10.9 - Unspecified abdominal pain Status: Acute Assessment and Plan: better today ok to start 2g na, DM diet (4) Encephalopathy acute: Code(s): G93.40 - Encephalopathy, unspecified Status: Acute Assessment and Plan: multifactorial, recent covid infection and use of narcotics, also could be PSE- started on lactulose (5) COVID-19: Code(s): U07.1 - COVID-19 Status: Acute (6) Abdominal ascites: Qualifiers: Ascites type: other type Qualified Code(s): R18.8 - Other ascites Code(s): R18.8 - Other ascites Status: Acute Assessment and Plan: small amount on low dose of diuretics 2g na diet (7) B-cell lymphoma of spleen: Code(s): C85.17 - Unspecified B-cell lymphoma, spleen Status: Acute Assessment and Plan: oncology on board, may need BM biopsy also noted mass in breast (8) Lymphoma: Code(s): C85.90 - Non-Hodgkin lymphoma, unspecified, unspecified site Status: Acute Subjective Date/time seen: 12/12/21 11:40 Interval history: abdominal ultrasound only small ascites not enough to get fluid. She is more awake and interacting today, less abdominal pain. Review of Systems Review of Systems: All systems reviewed & are unremarkable except as noted in HPI and below Exam Const: General: ill appearing chronically Other: comfortable, more alert today HENMT: General nose exam: Normal nares present Eyes: Pupils: Equal, round and reactive pupils present Neck: Neck: supple Resp: Auscultation: clear to auscultation bilaterally Cardio: Rate: regular rate GI: GI Palp: Yes Soft to palpation Auscultation: normal bowel sounds Other: obese, less tender, no rebound Skin: General skin exam: no rashes or lesions noted Neuro: Other: soft voice but talking more and alert Extrem: General: pedal edema bilaterally Psych: Affect: No Hostile affect present Objective Data Vital Signs Vital Signs: Vital Signs - 24 hr 12/11/21 14:30 12/11/21 16:00 12/11/21 17:00 Temperature 97.8 F Pulse Rate 91 83 Respiratory Rate 56 H Blood Pressure 157/61 H Pulse Oximetry 95 94 12/11/21 18:54 12/11/21 19:51 12/11/21 20:00 Temperature 99.1 F 97.9 F Pulse Rate 92 85 84 Respiratory Rate 20 20 Blood Pressure 148/62 H 138/53 L Pulse Oximetry 95 90 12/12/21 00:00 12/12/21 04:00 12/12/21 04:03 Temperature 97.6 F Pulse Rate 87 94 94 Respiratory Rate 20 Blood Pressure 150/62 H Pulse Oximetry 93 12/12/21 09:15 Temperature Pulse Rate 86 Respiratory Rate Blood Pressure Pulse Oximetry Intake/Output Intake/Output: Intake & Output 12/09/21 12/10/21 12/11/21 12/12/21 23:59 23:59 23:59 23:59 Intake Total 970 0 Output Total 750 300 Balance 220 -300 Meds/Results Medications: Active Medications Generic Name Dose Route Start Last Admin Trade Name Freq PRN Reason Stop Dose Admin Ferrous Sulfate 142 mg 12/12/21 09:00 12/12/21 09:14 Ferrous Sulfate Dried 142 Mg Tabcr PO 142 mg DAILY LOUIS Administration Furosemide 20 mg 12/12/21 09:00 12/12/21 09:15 Furosemi
--- NOTE | 2021-12-12 12:37 | PM.IMPN ---
Progress Note: A&P Assessment and Plan (1) Anemia: Qualifiers: Anemia type: unspecified type Qualified Code(s): D64.9 - Anemia, unspecified Code(s): D64.9 - Anemia, unspecified Status: Acute Assessment and Plan: 12/12 hgb stable at 7.2 (2) Syncope: Qualifiers: Syncope type: unspecified Qualified Code(s): R55 - Syncope and collapse Code(s): R55 - Syncope and collapse Status: Acute Assessment and Plan: Likely multifactoral: anemia, post-COVID, poor nutrition, intra-abdominal and pelvic masses No recurrence since admission (3) Abdominal ascites: Qualifiers: Ascites type: other type Qualified Code(s): R18.8 - Other ascites Code(s): R18.8 - Other ascites Status: Acute Assessment and Plan: Likely malignant Unable to obtain fluid with u/s (4) Cirrhosis of liver: Qualifiers: Hepatic cirrhosis type: unspecified hepatic cirrhosis Ascites presence: with ascites Qualified Code(s): K74.60 - Unspecified cirrhosis of liver; R18.8 - Other ascites Code(s): K74.60 - Unspecified cirrhosis of liver Status: Acute Assessment and Plan: Continue furosemide (5) B-cell lymphoma of spleen: Qualifiers: B-cell lymphoma type: unspecified B-cell Qualified Code(s): C85.17 - Unspecified B-cell lymphoma, spleen Code(s): C85.17 - Unspecified B-cell lymphoma, spleen Status: Acute Assessment and Plan: Likely recurrent Bone marrow biopsy might be the most expeditious means of confirmation Subjective Date/time seen: 12/12/21 12:37 Interval history: 12/12 visit: Poor appetite. Chronic leg swelling about the same. Mild generalized abdominal discomfort. Radiology could not safely extract any ascites as there was only a small amount of fluid. She has deep retroperitoneal nodes there would also be difficult to biopsy with imaging. Review of Systems Review of Systems: All systems reviewed & are unremarkable except as noted in HPI and below Exam Narrative: GENERAL: Well-appearing, well-nourished, and in no acute distress. HEAD: Normocephalic, atraumatic. Eschar left lateral lower lip EYES: PERRLA and EOMI. ENT: Nares clear, no rhinorrhea or epistaxis. Mucous membranes moist. NECK: Supple. No masses. No JVD CHEST: Clear to auscultation. No respiratory distress. No wheezes rales or rhonchi HEART: Regular rate and rhythm. No murmur heard. Normal peripheral pulses. ABDOMEN: Soft, nontender, protuberant but soft, normal active bowel sounds. EXTREMITIES: 3+ pitting edema legs-feet SKIN: Warm, dry, no rash. NEURO: No focal deficits. Alert and oriented x3. PSYCH: Normal mood and affect. Objective Data Vital Signs Vital Signs: Vital Signs - 24 hr 12/11/21 14:30 12/11/21 16:00 12/11/21 17:00 Temperature 97.8 F Pulse Rate 91 83 Respiratory Rate 56 H Blood Pressure 157/61 H Pulse Oximetry 95 94 12/11/21 18:54 12/11/21 19:51 12/11/21 20:00 Temperature 99.1 F 97.9 F Pulse Rate 92 85 84 Respiratory Rate 20 20 Blood Pressure 148/62 H 138/53 L Pulse Oximetry 95 90 12/12/21 00:00 12/12/21 04:00 12/12/21 04:03 Temperature 97.6 F Pulse Rate 87 94 94 Respiratory Rate 20 Blood Pressure 150/62 H Pulse Oximetry 93 12/12/21 09:15 Temperature Pulse Rate 86 Respiratory Rate Blood Pressure Pulse Oximetry Intake/Output Intake/Output: Intake & Output 12/09/21 12/10/21 12/11/21 12/12/21 23:59 23:59 23:59 23:59 Intake Total 970 0 Output Total 750 300 Balance 220 -300 Meds/Results Medications: Active Medications Generic Name Dose Route Start Last Admin Trade Name Saeq PRN Reason Stop Dose Admin Ferrous Sulfate 142 mg 12/12/21 09:00 12/12/21 09:14 Ferrous Sulfate Dried 142 Mg Tabcr PO 142 mg DAILY LOUIS Administration Furosemide 20 mg 12/12/21 09:00 12/12/21 09:15 Furosemide 20 Mg Tablet PO 20 mg VERN
[2021-12-13] VITALS (17 sets, daily range): BP systolic 131–147; BP diastolic 50–74; PULSE 79–119; RESP 16–46; TEMP 36.1–36.6; O2SAT 92–99
[2021-12-13 05:13] LABS: Basophils Percent Auto 0.2 % (0.2-1.2); Hematocrit 22.3 % (37.0-47.0); Hemoglobin 7.1 g/dL (12.0-15.0); Immature Granulocyte Absolute 0.42 K/mm3 (0.00-0.031); Immature Granulocyte Percent A 3.7 % (0-0.5); Immature Platelet Fraction Pct 15.4 % (0.9-11.2); Lymphocytes Absolute Auto 3.37 K/mm3 (0.9-3.2); Mean Corpuscular HGB Conc 31.8 g/dl (32-36); Mean Corpuscular Hemoglobin 26.6 pg (26-34); Mean Corpuscular Volume 83.5 fl (80-100); Mean Platelet Volume 13.8 fl (7.4-10.4); Monocytes Percent Auto 8.9 % (2.6-8.5); Neutrophils Absolute Auto 6.4 K/mm3 (1.3-6.7); Neutrophils Percent Auto 57.2 % (45.5-73.1); Nucleated Red Blood Cells Absolute Auto 0.1 K/mm3 (0.0-0.012); Platelet Count Result 109 k/mm3 (150-375); Red Blood Count 2.67 M/mm3 (4.2-5.4); Red Cell Distribution Width 23.2 % (11.5-14.5); White Blood Count 11.2 K/mm3 (4.5-10.0)
[2021-12-13 05:39] LABS: Alanine Aminotransferase 32 U/L (4-35); Alkaline Phosphatase 450 U/L (38-126); Anion Gap 5 mmol/L (8-16); Aspartate Amino Transferase 41 U/L (14-36); Bilirubin,Total 4.4 mg/dL (0.2-1.3); Blood Urea Nitrogen 22 mg/dL (7-17); Calcium 8.2 mg/dL (8.4-10.2); Carbon Dioxide 29 mmol/L (22-30); Chloride 105 mmol/L (98-107); Estimated CRCL calculation 52 ml/min; Estimated Glomerular Filt Rate > 60; Glucose 164 mg/dL (65-110); Potassium 3.6 mmol/L (3.4-5.0); Sodium 139 mmol/L (137-145)
[2021-12-13 05:46] LABS: NT Pro B Type Natriuretic Pept 5350 pg/mL (5-100)
[2021-12-13 07:13] LABS: Atypical Lymphocytes Present; Platelet Estimate Decreased (Adequate); Target Cells 2+ (NORMAL)
--- NOTE | 2021-12-13 09:00 | PC.NURSE ---
Patient was in the chair working with the MAIL PROCESSING MACHINE OPERATOR on bathing. Patient was assisting an cooperative. During bath became unresponsive in the chair. Approximate time of incident was 0855. Staff assist called and patient transferred to bed. Dr Hoang called and reported to the room. Vitals and blood glucose taken. See vital signs. Patient stabilized. Dr. Hoang will place orders.
[2021-12-13 09:04] LABS: Glucose Point of Care 158 mg/dl (65-105)
[2021-12-13] MEDS: SPIRONOLACTONE 50 MG TABLET PO (09:10)
[2021-12-13] MEDS: LACTULOSE 20 GM/30 ML UDC PO ×2 (09:10→17:02)
[2021-12-13] MEDS: FUROSEMIDE 20 MG TABLET PO (09:10)
[2021-12-13] MEDS: PANTOPRAZOLE 40 MG TABLET PO (09:10)
[2021-12-13] MEDS: METOPROLOL SUCCINATE EXT REL 50 MG TABCR PO (09:10)
[2021-12-13] MEDS: MULTIVITAMINS /C LUTEIN (CENTRUM SILVER) TABLET *BKC 1 TAB PO (09:10)
[2021-12-13] MEDS: FERROUS SULFATE DRIED 142 MG TABCR PO (09:11)
[2021-12-13] MEDS: LIDOCAINE 5% PATCH 3 PATCH TRANSDERM (09:11)
--- NOTE | 2021-12-13 09:12 | PM.IMPN ---
Progress Note: A&P Assessment and Plan (1) Anemia: Qualifiers: Anemia type: unspecified type Qualified Code(s): D64.9 - Anemia, unspecified Code(s): D64.9 - Anemia, unspecified Status: Acute Assessment and Plan: 12/12 hgb stable at 7.2 (2) Syncope: Qualifiers: Syncope type: unspecified Qualified Code(s): R55 - Syncope and collapse Code(s): R55 - Syncope and collapse Status: Acute Assessment and Plan: Likely multifactoral: anemia, post-COVID, poor nutrition, intra-abdominal and pelvic masses 12/13 recurrence while bathing. Hemoglobin 7.1 so 1 unit packed red cells ordered for symptomatic anemia. Check orthostatic blood pressure. (3) Abdominal ascites: Qualifiers: Ascites type: other type Qualified Code(s): R18.8 - Other ascites Code(s): R18.8 - Other ascites Status: Acute Assessment and Plan: Likely malignant Unable to obtain fluid with u/s (4) Cirrhosis of liver: Qualifiers: Hepatic cirrhosis type: unspecified hepatic cirrhosis Ascites presence: with ascites Qualified Code(s): K74.60 - Unspecified cirrhosis of liver; R18.8 - Other ascites Code(s): K74.60 - Unspecified cirrhosis of liver Status: Acute Assessment and Plan: Continue furosemide spironolactone and lactulose. 12/13 additional 20 mg IV furosemide x1. (5) B-cell lymphoma of spleen: Qualifiers: B-cell lymphoma type: unspecified B-cell Qualified Code(s): C85.17 - Unspecified B-cell lymphoma, spleen Code(s): C85.17 - Unspecified B-cell lymphoma, spleen Status: Acute Assessment and Plan: Likely recurrent Bone marrow biopsy discussed with her demand generator manager, Dr. Tam, and he would like to proceed tomorrow. Subjective Date/time seen: 12/13/21 09:12 Interval history: 12/13 visit: Syncopal episode while sitting in chair bathing with QUENCHING CAR OPERATOR. Raised right arm and had generalized shaking. Staff had to lift her back to bed. Awakened immediately. No postictal state. Very tired. No injury or incontinence. Chronic leg swelling about the same. Mild generalized abdominal discomfort. 12/12 Radiology could not safely extract any ascites as there was only a small amount of fluid. She has deep retroperitoneal nodes there would also be difficult to biopsy with imaging. Review of Systems Review of Systems: All systems reviewed & are unremarkable except as noted in HPI and below Exam Narrative: GENERAL: Chronically ill-appearing elderly female in no acute distress. HEAD: Sclerae nonicteric. Eschar left lateral lower lip EYES: PERRLA and EOMI. ENT: Nares clear, no rhinorrhea or epistaxis. Mucous membranes moist. NECK: Supple. No masses. No JVD CHEST: Diminished breath sounds at bases. No respiratory distress. No wheezes rales or rhonchi HEART: Regular rate and rhythm. No murmur heard. Normal peripheral pulses. ABDOMEN: Soft, nontender, protuberant but soft, normal active bowel sounds. EXTREMITIES: 3+ pitting edema legs-feet SKIN: Warm, dry, no rash. NEURO: No focal deficits. Alert and oriented x3. PSYCH: Blunted affect. Objective Data Vital Signs Vital Signs: Vital Signs - 24 hr 12/12/21 09:15 12/12/21 12:01 12/12/21 14:44 Temperature 97.6 F Pulse Rate 86 79 88 Respiratory Rate Blood Pressure 143/52 H Pulse Oximetry 95 12/12/21 16:00 12/12/21 19:42 12/12/21 20:00 Temperature 98.4 F Pulse Rate 80 88 91 Respiratory Rate 18 Blood Pressure 125/47 L Pulse Oximetry 92 12/13/21 00:00 12/13/21 04:00 12/13/21 04:20 Temperature 97.9 F Pulse Rate 79 90 96 Respiratory Rate 18 Blood Pressure 131/51 L Pulse Oximetry 93 Intake/Output Intake/Output: Intake & Output 12/10/21 12/11/21 12/12/21 12/13/21 23:59 23:59 23:59 23:59 Intake Total 970 400 50 Output Total 750 650 250 Balance 220 -250 -200 Meds/Results Medications: Active Medication
--- NOTE | 2021-12-13 10:11 | WPDGIPROGNO ---
Progress Note: A&P Assessment and Plan (1) Decompensation of cirrhosis of liver: Code(s): K72.90 - Hepatic failure, unspecified without coma; K74.60 - Unspecified cirrhosis of liver Status: Acute Assessment and Plan: she had prolonged hospitalization after had COVID infection, also had colonoscopy at another hospital will start 2g na diet and nutritional support only small amount of ascites not enough to get paracentesis ? SHAFER cirrhosis, hepatitis panel negative will need follow-up with her gi specialist (2) Elevated liver enzymes: Code(s): R74.8 - Abnormal levels of other serum enzymes Status: Acute Assessment and Plan: from liver disease but also noted progression on lymphoma oncology on board (3) Abdominal pain: Code(s): R10.9 - Unspecified abdominal pain Status: Acute Assessment and Plan: improving, she is hungry (4) Encephalopathy acute: Code(s): G93.40 - Encephalopathy, unspecified Status: Acute Assessment and Plan: multifactorial, recent covid infection and use of narcotics, also could be PSE- started on lactulose (5) COVID-19: Code(s): U07.1 - COVID-19 Status: Acute Assessment and Plan: few weeks ago and required prolonged hospitalization (6) Anemia: Qualifiers: Anemia type: unspecified type Qualified Code(s): D64.9 - Anemia, unspecified Code(s): D64.9 - Anemia, unspecified Status: Acute Assessment and Plan: hb low but stable, probably from cirrhosis, lymphoma and recent covid infection had colonoscopy at outside hospital (7) Abdominal ascites: Qualifiers: Ascites type: other type Qualified Code(s): R18.8 - Other ascites Code(s): R18.8 - Other ascites Status: Acute Assessment and Plan: small amount on low dose of diuretics 2g na diet (8) B-cell lymphoma of spleen: Qualifiers: B-cell lymphoma type: unspecified B-cell Qualified Code(s): C85.17 - Unspecified B-cell lymphoma, spleen Code(s): C85.17 - Unspecified B-cell lymphoma, spleen Status: Acute Assessment and Plan: oncology on board, may need BM biopsy also noted mass in breast Subjective Date/time seen: 12/13/21 10:11 Interval history: denies much of abdominal pain, actually she is hungry. Review of Systems Review of Systems: All systems reviewed & are unremarkable except as noted in HPI and below Exam Const: General: ill appearing chronically Other: comfortable, awake and alert, interacting more HENMT: General nose exam: Normal nares present Eyes: Pupils: Equal, round and reactive pupils present Neck: Neck: supple Resp: Auscultation: clear to auscultation bilaterally Cardio: Rate: regular rate GI: GI Palp: Yes Soft to palpation and No Firmness to palpation present (GI) Auscultation: normal bowel sounds Other: obese, less tender, no rebound Skin: General skin exam: no rashes or lesions noted Neuro: Other: awake and alert today Extrem: General: pedal edema bilaterally Psych: Affect: No Hostile affect present Objective Data Vital Signs Vital Signs: Vital Signs - 24 hr 12/12/21 12:01 12/12/21 14:44 12/12/21 16:00 Temperature 97.6 F Pulse Rate 79 88 80 Respiratory Rate Blood Pressure 143/52 H Pulse Oximetry 95 12/12/21 19:42 12/12/21 20:00 12/13/21 00:00 Temperature 98.4 F Pulse Rate 88 91 79 Respiratory Rate 18 Blood Pressure 125/47 L Pulse Oximetry 92 12/13/21 04:00 12/13/21 04:20 12/13/21 08:00 Temperature 97.9 F Pulse Rate 90 96 91 Respiratory Rate 18 Blood Pressure 131/51 L Pulse Oximetry 93 12/13/21 09:10 Temperature Pulse Rate 96 Respiratory Rate Blood Pressure Pulse Oximetry Intake/Output Intake/Output: Intake & Output 12/10/21 12/11/21 12/12/21 12/13/21 23:59 23:59 23:59 23:59 Intake Total 970 400 200 Output Total 750 650 250 Balance 220 -250 -50
[2021-12-13] MEDS: SODIUM CHLORIDE 0.9% IV 250 ML 30 ML IV CONT (12:49)
--- NOTE | 2021-12-13 15:07 | PCPTNOTE ---
Did not see patient for Physical Therapy session this date per RN.
[2021-12-13] MEDS: POTASSIUM CHLORIDE 20 MEQ TABLET PO (15:45)
[2021-12-13] MEDS: FUROSEMIDE INJ 40 MG/4 ML VIAL 20 MG IV PUSH (15:46)
[2021-12-13 18:10] LABS: Hematocrit 27.4 % (37.0-47.0); Immature Platelet Fraction Pct 17.1 % (0.9-11.2); Mean Corpuscular HGB Conc 32.8 g/dl (32-36); Mean Corpuscular Hemoglobin 27.5 pg (26-34); Mean Corpuscular Volume 83.8 fl (80-100); Platelet Count Result 99 k/mm3 (150-375); Red Blood Count 3.27 M/mm3 (4.2-5.4); Red Cell Distribution Width 22.8 % (11.5-14.5); White Blood Count 11.5 K/mm3 (4.5-10.0)
[2021-12-14] VITALS (16 sets, daily range): BP systolic 133–153; BP diastolic 51–79; PULSE 70–96; RESP 18–30; TEMP 36.1–37.5; O2SAT 91–96
--- NOTE | 2021-12-14 | ECHO_ITS ---
Patient Info Name: Denia Soria Age: 76 years : 1945 Gender: Female Ht: 64 in Wt: 194 lbs BSA: 2.03 m2 HR: 87 bpm BP: 148 / 79 mmHg Technical Quality: Good Exam Date: 12/14/2021 1:20 PM Exam Location: [facility] Pulmonary Patient Status: Inpatient Admit Date: 12/13/2021 Staff Ordering Physician: Kb Morales Butting Saw Operator: Destiny Torres RDCS Attending Provider: Diana Live DO Referring Physician: Andrew MICHAEL; Exam Type: CA echo doppler color flow Study Info Indications R55 - Syncope and collapse Complete two-dimensional, color flow and Doppler transthoracic echocardiogram is performed. Summary 1. Complete two-dimensional, color flow and Doppler transthoracic echocardiogram is performed. 2. Left ventricular chamber dimension is normal. 3. Left ventricular systolic function is normal, estimated at 60-65%. 4. There is mildly increased left ventricular wall thickness. 5. The left ventricular diastolic function is grade I diastolic dysfunction. 6. E/e' 21 is elevated. 7. Global longitudinal strain is normal at -17.1%. 8. Left atrial chamber dimension is moderately enlarged. 9. The mitral valve has severely calcified posterior annulus. 10. No pulmonary hypertension, estimated pulmonary arterial systolic pressure is 39 mmHg. 11. There is trivial pericardial effusion. Left Ventricle E/e' 21 is elevated. Global longitudinal strain is normal at -17.1%. Left ventricular chamber dimension is normal. Left ventricular systolic function is normal, estimated at 60-65%. There is mildly increased left ventricular wall thickness. The left ventricular diastolic function is grade I diastolic dysfunction. Right Ventricle Right ventricular systolic function is normal and with normal TAPSE 2.7 cm. Right ventricular chamber dimension is normal. Left Atria Left atrial chamber dimension is moderately enlarged. Right Atria Right atrial chamber dimension is normal. Aortic Valve The aortic valve is trileaflet. There is no aortic valve stenosis. There is no aortic valve regurgitation. Pulmonic Valve There is no pulmonic regurgitation. Mitral Valve The mitral valve has severely calcified posterior annulus. There is no mitral valve stenosis. There is no mitral valve regurgitation. Tricuspid Valve There is no tricuspid valve regurgitation. No pulmonary hypertension, estimated pulmonary arterial systolic pressure is 39 mmHg. Pericardium/Pleural There is trivial pericardial effusion. Inferior Vena Cava Normal inferior vena cava with >50% collapse upon inspiration consistent with normal right atrial pressure, 5 mmHg. Aorta The aortic root size at the sinus of Valsalva is normal. Left Ventricular Outflow Tract Name Value Normal LVOT 2D LVOT Diameter 2.0 cm LVOT Doppler LVOT Peak Gradient 7 mmHg LVOT Mean Gradient 4 mmHg LVOT VTI 30 cm LVOT VTI/AV VTI Ratio 0.9 LVOT Stroke Volume 95 ml LVOT CO 8.4
[2021-12-14 05:57] LABS: Hematocrit 23.5 % (37.0-47.0); Hemoglobin 7.7 g/dL (12.0-15.0); Immature Platelet Fraction Pct 15.6 % (0.9-11.2); Mean Corpuscular HGB Conc 32.8 g/dl (32-36); Mean Corpuscular Hemoglobin 26.9 pg (26-34); Mean Corpuscular Volume 82.2 fl (80-100); Platelet Count Result 90 k/mm3 (150-375); Red Blood Count 2.86 M/mm3 (4.2-5.4); Red Cell Distribution Width 22.3 % (11.5-14.5); White Blood Count 10.7 K/mm3 (4.5-10.0)
[2021-12-14 06:05] LABS: Alanine Aminotransferase 33 U/L (4-35); Alkaline Phosphatase 375 U/L (38-126); Anion Gap 7 mmol/L (8-16); Aspartate Amino Transferase 37 U/L (14-36); Bilirubin,Total 5.2 mg/dL (0.2-1.3); Blood Urea Nitrogen 24 mg/dL (7-17); Calcium 8.3 mg/dL (8.4-10.2); Carbon Dioxide 29 mmol/L (22-30); Chloride 103 mmol/L (98-107); Estimated CRCL calculation 58 ml/min; Estimated Glomerular Filt Rate > 60; Glucose 186 mg/dL (65-110); Potassium 3.2 mmol/L (3.4-5.0); Sodium 139 mmol/L (137-145)
--- NOTE | 2021-12-14 09:15 | PC.NURSE ---
To label designer for bone marrow aspiration per marilia, report given to Jean PEREYRA
[2021-12-14] MEDS: FUROSEMIDE 20 MG TABLET PO (10:47)
[2021-12-14] MEDS: KCL 20 MEQ/SW 100 ML 100 ML 50 MEQ IVPB (10:47)
[2021-12-14] MEDS: MULTIVITAMINS /C LUTEIN (CENTRUM SILVER) TABLET *BKC 1 TAB PO (10:47)
[2021-12-14] MEDS: FERROUS SULFATE DRIED 142 MG TABCR PO (10:47)
[2021-12-14] MEDS: SPIRONOLACTONE 50 MG TABLET PO (10:48)
[2021-12-14] MEDS: METOPROLOL SUCCINATE EXT REL 50 MG TABCR PO (10:48)
[2021-12-14] MEDS: PANTOPRAZOLE 40 MG TABLET PO (10:48)
[2021-12-14] MEDS: LIDOCAINE 5% PATCH 3 PATCH TRANSDERM (10:49)
[2021-12-14] MEDS: LACTULOSE 20 GM/30 ML UDC PO ×2 (10:49→17:26)
--- NOTE | 2021-12-14 11:20 | PCOTNOTE ---
Per RN hold OT treatment today due to new bedrest orders placed on 12/13/2021, will follow.
--- NOTE | 2021-12-14 12:56 | P.PNONC_ITS ---
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 Bone marrow biopsy was performed today. Pathology is pending. There was concern of relapse of lymphoma causing her anemia. Normocytic anemia. Labs noted. Will start her on IV iron infusion. Liver cirrhosis and ascites. Dr. Landry is following the patient. Right breast mass. Patient had right breast mass biopsy done in 2018 that showed benign findings. No need for repeat biopsy in at this time. - Time Spent With Patient Total time spent is greater than 50% in coordination of care (as documented) at patient's floor/unit and/or counseling patient: 15 - 25 minutes Subjective Interval history: Anemia and thrombocytopenia History of splenic marginal zone lymphoma Liver cirrhosis Review of Systems - Review of Systems Patient remains quite tired and fatigued. She developed ulceration at the corner of the mouth. Denies any bleeding including melena hematochezia. She meza d bone marrow biopsy done today. Denies any chest pain and shortness of breath. Denies any lymphadenopathy. - Neurologic Reports hearing normal, Reports weakness, Denies headache(s) Exam Vital signs: Temp Pulse Resp BP Pulse Ox 36.1 C L 96 20 133/51 L 96 12/14/21 10:49 12/14/21 12:00 12/14/21 10:49 12/14/21 10:49 12/14/21 11:40 Narrative: Lungs are clear to auscultation bilaterally Cardiovascular regular rate rhythm no murmurs Abdomen slightly distended bowel sounds are positive Extremities no edema Oral exam showed ulceration at the corner of the mouth. PN: Objective Data - Labs CBC & Chem 7: 12/14/21 05:33 12/14/21 05:33 Labs: Laboratory Results - last 24 hr 12/10/21 12/13/21 12/14/21 22:55 17:44 05:33 WBC 11.5 H 10.7 H RBC 3.27 L 2.86 L Hgb 9.0 L 7.7 L Hct 27.4 L 23.5 L MCV 83.8 82.2 MCH 27.5 26.9 MCHC 32.8 32.8 RDW 22.8 H 22.3 H Plt Count 99 L 90 L MPV TNP TNP % Immature Plt Fraction 17.1 H 15.6 H Sodium Potassium Chloride Carbon Dioxide Anion Gap BUN Creatinine Estim Creat Clear Calc Estimated GFR Glucose Calcium Total Bilirubin AST ALT Alkaline Phosphatase Total Protein Albumin Enhanced Crossmatch See Detail 12/14/21 05:33 WBC RBC Hgb Hct MCV MCH MCHC RDW Plt Count MPV % Immature Plt Fraction Sodium 139 Potassium 3.2 L Chloride 103 Carbon Dioxide 29 Anion Gap 7 L BUN 24 H Creatinine 0.80 Estim Creat Clear Calc 58 Estimated GFR > 60 Glucose 186 H Calcium 8.3 L Total Bilirubin 5.2 H AST 37 H ALT 33 Alkaline Phosphatase 375 H Total Protein 4.0 L Albumin 2.0 L Enhanced Crossmatch
[2021-12-14 15:16] LABS: Vitamin B12 > 1000.0 pg/mL (239-931)
--- NOTE | 2021-12-14 15:35 | P.PNIM_ITS ---
Progress Note: A&P Assessment and Plan (1) Anemia: Qualifiers: Anemia type: unspecified type Qualified Code(s): D64.9 - Anemia, unspecified Code(s): D64.9 - Anemia, unspecified Status: Acute Assessment and Plan: * Current H/H 7.7/23.5 * Anemia labs: Iron 18, TIBC 128, % sat 14, Ferritin > 2000.00 * Continue home ferrous sulfate * 1 Unit of PRBC on 12/13/21 * Trend H/H * Transfuse as indicated (2) Syncope: Qualifiers: Syncope type: unspecified Qualified Code(s): R55 - Syncope and collapse Code(s): R55 - Syncope and collapse Status: Acute Assessment and Plan: * Likely multifactorial: anemia, post-COVID, poor nutrition, intra-abdominal and pelvic masses * 12/13 recurrence while bathing * Hemoglobin 7.1 so 1 unit packed red cells ordered for symptomatic anemia * orthostatic blood pressure * head CT negative * Carotid doppler ordered * Echo 60-65% with a grade 1 diastolic dysfunction (3) Abdominal ascites: Qualifiers: Ascites type: other type Qualified Code(s): R18.8 - Other ascites Code(s): R18.8 - Other ascites Status: Acute Assessment and Plan: * CT found moderate ascites * Paracentesis cancelled, ultrasound only found small amount of ascites * Likely malignant * Unable to obtain fluid with u/s (4) Cirrhosis of liver: Qualifiers: Ascites presence: with ascites Hepatic cirrhosis type: unspecified hepatic cirrhosis Qualified Code(s): K74.60 - Unspecified cirrhosis of liver; R18.8 - Other ascites Code(s): K74.60 - Unspecified cirrhosis of liver Status: Acute Assessment and Plan: * Found on the CT * Continue furosemide spironolactone and lactulose. * / additional 20 mg IV furosemide x1 * BNP elevated * Wonder if there is a component of CHF (5) B-cell lymphoma of spleen: Qualifiers: B-cell lymphoma type: unspecified B-cell Qualified Code(s): C85.17 - Unspecified B-cell lymphoma, spleen Code(s): C85.17 - Unspecified B-cell lymphoma, spleen Status: Acute Assessment and Plan: * Likely recurrent * Bone marrow biopsy discussed with her boiler tube reamer, Dr. Tam, and he would like to proceed tomorrow * Scheduled for today * Dr. Tam consulted (6) Congestive heart failure: Code(s): I50.9 - Heart failure, unspecified Status: Acute Assessment and Plan: * BNP elevated at 5350 * 3+ pitting edema noted on exam * Lasix, spironolactone on board * Echo 60-65% with grade 1 DD, which would make this an acute exacerbation of diastolic heart failure. * Continue home metoprolol Time Spent With Patient Time with patient: Greater than 35 minutes Subjective Date/time seen: 12/14/21 1535 Interval history: Date/Time: 12/11/21 09:14 Denia was resting in bed this morning when I went to examine her and visit with her. She did seem confused and changed her answers often regarding her health history. She was unable to tell me if she lived at home or in assisted living and at one point said she lived at [facility]. She has 3+ pitting edema to her lower extremities but is having no difficulty breathing. She denies any abdominal pain during my exam even with palpation. I called and spoke with her daughter Nya Almonte. Denia has been living at home, the same home she has been in for 60+ years with her , the same home that she built with her . Her jatinder
--- NOTE | 2021-12-14 15:35 | PM.IMPN ---
Progress Note: A&P Assessment and Plan (1) Anemia: Qualifiers: Anemia type: unspecified type Qualified Code(s): D64.9 - Anemia, unspecified Code(s): D64.9 - Anemia, unspecified Status: Acute Assessment and Plan: Current H/H 7.7/23.5 Anemia labs: Iron 18, TIBC 128, % sat 14, Ferritin > 2000.00 Continue home ferrous sulfate 1 Unit of PRBC on 12/13/21 Trend H/H Transfuse as indicated (2) Syncope: Qualifiers: Syncope type: unspecified Qualified Code(s): R55 - Syncope and collapse Code(s): R55 - Syncope and collapse Status: Acute Assessment and Plan: Likely multifactorial: anemia, post-COVID, poor nutrition, intra-abdominal and pelvic masses 12/13 recurrence while bathing Hemoglobin 7.1 so 1 unit packed red cells ordered for symptomatic anemia orthostatic blood pressure head CT negative Carotid doppler ordered Echo 60-65% with a grade 1 diastolic dysfunction (3) Abdominal ascites: Qualifiers: Ascites type: other type Qualified Code(s): R18.8 - Other ascites Code(s): R18.8 - Other ascites Status: Acute Assessment and Plan: CT found moderate ascites Paracentesis cancelled, ultrasound only found small amount of ascites Likely malignant Unable to obtain fluid with u/s (4) Cirrhosis of liver: Qualifiers: Ascites presence: with ascites Hepatic cirrhosis type: unspecified hepatic cirrhosis Qualified Code(s): K74.60 - Unspecified cirrhosis of liver; R18.8 - Other ascites Code(s): K74.60 - Unspecified cirrhosis of liver Status: Acute Assessment and Plan: Found on the CT Continue furosemide spironolactone and lactulose. 12/13 additional 20 mg IV furosemide x1 BNP elevated Wonder if there is a component of CHF (5) B-cell lymphoma of spleen: Qualifiers: B-cell lymphoma type: unspecified B-cell Qualified Code(s): C85.17 - Unspecified B-cell lymphoma, spleen Code(s): C85.17 - Unspecified B-cell lymphoma, spleen Status: Acute Assessment and Plan: Likely recurrent Bone marrow biopsy discussed with her hand flesher, Dr. Tam, and he would like to proceed tomorrow Scheduled for today Dr. Tam consulted (6) Congestive heart failure: Code(s): I50.9 - Heart failure, unspecified Status: Acute Assessment and Plan: BNP elevated at 5350 3+ pitting edema noted on exam Lasix, spironolactone on board Echo 60-65% with grade 1 DD, which would make this an acute exacerbation of diastolic heart failure. Continue home metoprolol Time Spent With Patient Time with patient: Greater than 35 minutes Subjective Date/time seen: 12/14/21 1535 Interval history: Date/Time: 12/11/21 09:14 Denia was resting in bed this morning when I went to examine her and visit with her. She did seem confused and changed her answers often regarding her health history. She was unable to tell me if she lived at home or in assisted living and at one point said she lived at [place]. She has 3+ pitting edema to her lower extremities but is having no difficulty breathing. She denies any abdominal pain during my exam even with palpation. I called and spoke with her daughter Nya Almonte. Denia has been living at home, the same home she has been in for 60+ years with her , the same home that she built with her . Her approximately 20 years ago. Nya her daughter had moved home to take care of her father and continues living with her mother. Denia spent 20 days inpatient at [facility] in [place] for COVID related issues. She was discharged a few days ago and has been home with Nya. The family has arranged 24 hour 7 day a week care for Denia, within her own home, plus home health PT, OT, RN also started after discharge from [facility] and they want to continue having home
--- NOTE | 2021-12-14 16:16 | WPDGIPROGNO ---
Progress Note: A&P Assessment and Plan (1) Decompensation of cirrhosis of liver: Code(s): K72.90 - Hepatic failure, unspecified without coma; K74.60 - Unspecified cirrhosis of liver Status: Acute Assessment and Plan: with prolonged hospitalization after had COVID infection, also had colonoscopy at another hospital only small amount of ascites not enough to get paracentesis ? SHAFER cirrhosis, hepatitis panel negative (2) Elevated liver enzymes: Code(s): R74.8 - Abnormal levels of other serum enzymes Status: Acute Assessment and Plan: persistent elevated liver enzymes from liver disease but also noted progression on lymphoma oncology on board and BM biopsy was done (3) Abdominal pain: Code(s): R10.9 - Unspecified abdominal pain Status: Acute Assessment and Plan: no much of pain now (4) Encephalopathy acute: Code(s): G93.40 - Encephalopathy, unspecified Status: Acute Assessment and Plan: multifactorial, this has improved (5) B-cell lymphoma of spleen: Qualifiers: B-cell lymphoma type: unspecified B-cell Qualified Code(s): C85.17 - Unspecified B-cell lymphoma, spleen Code(s): C85.17 - Unspecified B-cell lymphoma, spleen Status: Acute Assessment and Plan: oncology on board, may need BM biopsy also noted mass in breast (6) Anemia: Qualifiers: Anemia type: unspecified type Qualified Code(s): D64.9 - Anemia, unspecified Code(s): D64.9 - Anemia, unspecified Status: Acute Assessment and Plan: s/p 1 unit prbc, could be from cirrhosis, lymphoma and recent covid infection had colonoscopy at outside hospital no overt gib (7) Abdominal ascites: Qualifiers: Ascites type: other type Qualified Code(s): R18.8 - Other ascites Code(s): R18.8 - Other ascites Status: Acute Assessment and Plan: small amount on low dose of diuretics 2g na diet (8) COVID-19: Code(s): U07.1 - COVID-19 Status: Acute Assessment and Plan: few weeks ago and required prolonged hospitalization Subjective Date/time seen: 12/14/21 16:16 Interval history: she received one unit prbc and had BM biopsy, still feeling weak and tired and almost passed out when bathing, denies much abdominal pain Review of Systems Review of Systems: All systems reviewed & are unremarkable except as noted in HPI and below Exam Const: General: ill appearing chronically Other: comfortable, awake and alert HENMT: General nose exam: Normal nares present Eyes: Pupils: Equal, round and reactive pupils present Neck: Neck: supple Resp: Auscultation: clear to auscultation bilaterally Cardio: Rate: regular rate GI: GI Palp: Yes Soft to palpation and No Firmness to palpation present (GI) Auscultation: normal bowel sounds Other: obese, less tender, no rebound Skin: General skin exam: no rashes or lesions noted Neuro: Other: awake and alert Extrem: General: pedal edema bilaterally Psych: Affect: Anxious affect present Objective Data Vital Signs Vital Signs: Vital Signs - 24 hr 12/13/21 20:00 12/13/21 20:09 12/13/21 23:23 Temperature 98 F Pulse Rate 93 89 Respiratory Rate 16 Blood Pressure 135/52 L Pulse Oximetry 93 92 12/14/21 00:00 12/14/21 04:00 12/14/21 05:58 Temperature 97.5 F L Pulse Rate 91 86 70 Respiratory Rate 20 Blood Pressure 148/79 H Pulse Oximetry 93 12/14/21 08:00 12/14/21 10:05 12/14/21 10:20 Temperature 99.5 F Pulse Rate 77 90 89 Respiratory Rate 30 H 26 H Blood Pressure 140/76 153/65 H Pulse Oximetry 94 91 12/14/21 10:35 12/14/21 10:48 12/14/21 10:49 Temperature 97.0 F L Pulse Rate 83 88 88 Respiratory Rate 26 H 20 Blood Pressure 143/75 H 133/51 L Pulse Oximetry 92 93 12/14/21 11:40 12/14/21 12:00 12/14/21 14:00 Temperature 98.2 F Pulse Rate 96 87 Respiratory Rate 18 Blood Pressure 136/
[2021-12-15] VITALS (14 sets, daily range): BP systolic 127–147; BP diastolic 52–88; PULSE 78–116; RESP 16–17; TEMP 36.5–37; O2SAT 92–95
[2021-12-15 05:56] LABS: Basophils Percent Auto 0.3 % (0.2-1.2); Hematocrit 24.9 % (37.0-47.0); Immature Granulocyte Absolute 0.54 K/mm3 (0.00-0.031); Immature Granulocyte Percent A 4.7 % (0-0.5); Immature Platelet Fraction Pct 19.8 % (0.9-11.2); Lymphocytes Absolute Auto 2.99 K/mm3 (0.9-3.2); Lymphocytes Percent Auto 26.2 % (18.3-44.2); Mean Corpuscular HGB Conc 32.1 g/dl (32-36); Mean Corpuscular Hemoglobin 27.3 pg (26-34); Monocytes Absolute Auto 0.8 K/mm3 (0.1-0.6); Neutrophils Absolute Auto 7.1 K/mm3 (1.3-6.7); Neutrophils Percent Auto 61.8 % (45.5-73.1); Nucleated Red Blood Cells Absolute Auto 0.4 K/mm3 (0.0-0.012); Nucleated Red Blood Cells Perc 3.1 % (0.0-0.2); Platelet Count Result 76 k/mm3 (150-375); Red Blood Count 2.93 M/mm3 (4.2-5.4); Red Cell Distribution Width 23.4 % (11.5-14.5); White Blood Count 11.4 K/mm3 (4.5-10.0)
[2021-12-15 06:07] LABS: Alanine Aminotransferase 32 U/L (4-35); Albumin Level 1.9 g/dL (3.5-5.1); Alkaline Phosphatase 356 U/L (38-126); Anion Gap 7 mmol/L (8-16); Aspartate Amino Transferase 42 U/L (14-36); Bilirubin,Total 6.3 mg/dL (0.2-1.3); Blood Urea Nitrogen 25 mg/dL (7-17); Calcium 7.8 mg/dL (8.4-10.2); Carbon Dioxide 27 mmol/L (22-30); Chloride 108 mmol/L (98-107); Estimated CRCL calculation 58 ml/min; Estimated Glomerular Filt Rate > 60; Glucose 194 mg/dL (65-110); Magnesium 2.1 mg/dL (1.6-2.3); Potassium 3.6 mmol/L (3.4-5.0); Sodium 142 mmol/L (137-145)
[2021-12-15 06:53] LABS: Anisocytosis 1+ (NORMAL); Platelet Estimate Decreased (Adequate); Target Cells 2+ (NORMAL)
--- NOTE | 2021-12-15 08:30 | PM.IMPN ---
Progress Note: A&P Assessment and Plan (1) Anemia: Qualifiers: Anemia type: unspecified type Qualified Code(s): D64.9 - Anemia, unspecified Code(s): D64.9 - Anemia, unspecified Status: Acute Assessment and Plan: Current H/H 8.0/24.9 Anemia labs: Iron 18, TIBC 128, % sat 14, Ferritin > 2000.00 Continue home ferrous sulfate 3 bags of IV iron per oncology Oncology consulted thank your help 1 Unit of PRBC on 12/13/21 Trend H/H Transfuse as indicated (2) Syncope: Qualifiers: Syncope type: unspecified Qualified Code(s): R55 - Syncope and collapse Code(s): R55 - Syncope and collapse Status: Acute Assessment and Plan: Likely multifactorial: anemia, post-COVID, poor nutrition, intra-abdominal and pelvic masses 12/13 recurrence while bathing orthostatic blood pressure: Laying, Sitting, Standing head CT negative Carotid doppler <50% stenosis bilateral Echo 60-65% with a grade 1 diastolic dysfunction Does seem to get dizzy with position changes Meclizine 25mg PO QID (3) Abdominal ascites: Qualifiers: Ascites type: other type Qualified Code(s): R18.8 - Other ascites Code(s): R18.8 - Other ascites Status: Acute Assessment and Plan: CT found moderate ascites Paracentesis cancelled, ultrasound only found small amount of ascites Likely malignant Unable to obtain fluid with u/s Spironolactone 50mg PO (4) Cirrhosis of liver: Qualifiers: Ascites presence: with ascites Hepatic cirrhosis type: unspecified hepatic cirrhosis Qualified Code(s): K74.60 - Unspecified cirrhosis of liver; R18.8 - Other ascites Code(s): K74.60 - Unspecified cirrhosis of liver Status: Acute Assessment and Plan: Found on the CT Continue furosemide spironolactone and lactulose. 12/13 additional 20 mg IV furosemide x1 BNP elevated at 5350 Wonder if there is a component of CHF Ammonia <9 (5) B-cell lymphoma of spleen: Qualifiers: B-cell lymphoma type: unspecified B-cell Qualified Code(s): C85.17 - Unspecified B-cell lymphoma, spleen Code(s): C85.17 - Unspecified B-cell lymphoma, spleen Status: Acute Assessment and Plan: Likely recurrent Bone marrow biopsy performed on 12/14/21 wound care Monitor drainage Scheduled for today Dr. Tam consulted (6) Congestive heart failure: Code(s): I50.9 - Heart failure, unspecified Status: Acute Assessment and Plan: BNP elevated at 5350 1+ pitting edema noted on exam Lasix, spironolactone on board Echo 60-65% with grade 1 DD, which would make this an acute exacerbation of diastolic heart failure. Continue home metoprolol (7) Tachycardia: Code(s): R00.0 - Tachycardia, unspecified Status: Acute Assessment and Plan: HR is 100-120 with activity Metoprolol 50mg PO Daily Seems to usually be controlled Trend HR Adjust therapy as indicated Time Spent With Patient Time with patient: Greater than 35 minutes Subjective Date/time seen: 12/15/21 0830 Interval history: Date/Time: 12/11/21 09:14 Denia was resting in bed this morning when I went to examine her and visit with her. She did seem confused and changed her answers often regarding her health history. She was unable to tell me if she lived at home or in assisted living and at one point said she lived at [place]. She has 3+ pitting edema to her lower extremities but is having no difficulty breathing. She denies any abdominal pain during my exam even with palpation. I called and spoke with her daughter Nya Almonte. Denia has been living at home, the same home she has been in for 60+ years with her , the same home that she built with her . Her approximately 20 years ago. Nya her daughter had moved home to take care of her father and kathe
--- NOTE | 2021-12-15 08:30 | P.PNIM_ITS ---
Progress Note: A&P Assessment and Plan (1) Anemia: Qualifiers: Anemia type: unspecified type Qualified Code(s): D64.9 - Anemia, unspecified Code(s): D64.9 - Anemia, unspecified Status: Acute Assessment and Plan: * Current H/H 8.0/24.9 * Anemia labs: Iron 18, TIBC 128, % sat 14, Ferritin > 2000.00 * Continue home ferrous sulfate * 3 bags of IV iron per oncology * Oncology consulted thank your help * 1 Unit of PRBC on 12/13/21 * Trend H/H * Transfuse as indicated (2) Syncope: Qualifiers: Syncope type: unspecified Qualified Code(s): R55 - Syncope and collapse Code(s): R55 - Syncope and collapse Status: Acute Assessment and Plan: * Likely multifactorial: anemia, post-COVID, poor nutrition, intra-abdominal and pelvic masses * 12/13 recurrence while bathing * orthostatic blood pressure: Laying, Sitting, Standing * head CT negative * Carotid doppler <50% stenosis bilateral * Echo 60-65% with a grade 1 diastolic dysfunction * Does seem to get dizzy with position changes * Meclizine 25mg PO QID (3) Abdominal ascites: Qualifiers: Ascites type: other type Qualified Code(s): R18.8 - Other ascites Code(s): R18.8 - Other ascites Status: Acute Assessment and Plan: * CT found moderate ascites * Paracentesis cancelled, ultrasound only found small amount of ascites * Likely malignant * Unable to obtain fluid with u/s * Spironolactone 50mg PO (4) Cirrhosis of liver: Qualifiers: Ascites presence: with ascites Hepatic cirrhosis type: unspecified h epatic cirrhosis Qualified Code(s): K74.60 - Unspecified cirrhosis of liver; R18.8 - Other ascites Code(s): K74.60 - Unspecified cirrhosis of liver Status: Acute Assessment and Plan: * Found on the CT * Continue furosemide spironolactone and lactulose. * / additional 20 mg IV furosemide x1 * BNP elevated at 5350 * Wonder if there is a component of CHF * Ammonia <9 (5) B-cell lymphoma of spleen: Qualifiers: B-cell lymphoma type: unspecified B-cell Qualified Code(s): C85.17 - Unspecified B-cell lymphoma, spleen Code(s): C85.17 - Unspecified B-cell lymphoma, spleen Status: Acute Assessment and Plan: * Likely recurrent * Bone marrow biopsy performed on 12/14/21 * wound care * Monitor drainage * Scheduled for today * Dr. Tam consulted (6) Congestive heart failure: Code(s): I50.9 - Heart failure, unspecified Status: Acute Assessment and Plan: * BNP elevated at 5350 * 1+ pitting edema noted on exam * Lasix, spironolactone on board * Echo 60-65% with grade 1 DD, which would make this an acute exacerbation of diastolic heart failure. * Continue home metoprolol (7) Tachycardia: Code(s): R00.0 - Tachycardia, unspecified Status: Acute Assessment and Plan: * HR is 100-120 with activity * Metoprolol 50mg PO Daily * Seems to usually be controlled * Trend HR * Adjust therapy as indicated Time Spent With Patient Time with patient: Greater than 35 minutes Subjective Date/time seen: 12/15/21 0830 Interval history: Date/Time: 12/11/21 09:14 Denia was resting in bed this morning when I went to examine her and visit with her. She did seem confused and changed her answers often regarding her health history. She was unable t
[2021-12-15] MEDS: FUROSEMIDE 20 MG TABLET PO (08:35)
[2021-12-15] MEDS: MULTIVITAMINS /C LUTEIN (CENTRUM SILVER) TABLET *BKC 1 TAB PO (08:35)
[2021-12-15] MEDS: PANTOPRAZOLE 40 MG TABLET PO (08:35)
[2021-12-15] MEDS: FERROUS SULFATE DRIED 142 MG TABCR PO (08:35)
[2021-12-15] MEDS: SPIRONOLACTONE 50 MG TABLET PO (08:35)
[2021-12-15] MEDS: LACTULOSE 20 GM/30 ML UDC PO ×2 (08:36→16:26)
[2021-12-15] MEDS: METOPROLOL SUCCINATE EXT REL 50 MG TABCR PO (08:36)
[2021-12-15] MEDS: TOLNAFTATE 1% POWDER 45 GM BTL 1 APPLIC TOPICAL ×2 (09:51→20:42)
--- NOTE | 2021-12-15 16:35 | WPDGIPROGNO ---
Progress Note: A&P Assessment and Plan (1) Decompensation of cirrhosis of liver: Code(s): K72.90 - Hepatic failure, unspecified without coma; K74.60 - Unspecified cirrhosis of liver Status: Acute Assessment and Plan: she had prolonged hospitalization last month at another facility after had COVID infection, also had colonoscopy at another hospital only small amount of ascites not enough to get paracentesis ? SHAFER cirrhosis, hepatitis panel negative (2) Elevated liver enzymes: Code(s): R74.8 - Abnormal levels of other serum enzymes Status: Acute Assessment and Plan: persistent elevated liver enzymes from liver disease but also noted progression on lymphoma, this is mostly unchanged oncology on board and BM biopsy was done (3) Abdominal pain: Code(s): R10.9 - Unspecified abdominal pain Status: Acute Assessment and Plan: she is comfortable now (4) Encephalopathy acute: Code(s): G93.40 - Encephalopathy, unspecified Status: Acute Assessment and Plan: multifactorial, this has improved and she is talking more (5) B-cell lymphoma of spleen: Qualifiers: B-cell lymphoma type: unspecified B-cell Qualified Code(s): C85.17 - Unspecified B-cell lymphoma, spleen Code(s): C85.17 - Unspecified B-cell lymphoma, spleen Status: Acute Assessment and Plan: oncology on board, s/p BM biopsy (6) Anemia: Qualifiers: Anemia type: unspecified type Qualified Code(s): D64.9 - Anemia, unspecified Code(s): D64.9 - Anemia, unspecified Status: Acute Assessment and Plan: multifactorial from cirrhosis, lymphoma and recent covid infection had colonoscopy at outside hospital no overt gib (7) Abdominal ascites: Qualifiers: Ascites type: other type Qualified Code(s): R18.8 - Other ascites Code(s): R18.8 - Other ascites Status: Acute Assessment and Plan: small amount- not enough for paracentesis on low dose of diuretics 2g na diet (8) COVID-19: Code(s): U07.1 - COVID-19 Status: Acute Assessment and Plan: few weeks ago and required prolonged hospitalization Subjective Date/time seen: 12/15/21 16:35 Interval history: no new complaints, she denies abdominal pain and she is resting comfortable in bed Review of Systems Review of Systems: All systems reviewed & are unremarkable except as noted in HPI and below Exam Const: General: ill appearing chronically Other: comfortable, awake and alert HENMT: General nose exam: Normal nares present Eyes: Pupils: Equal, round and reactive pupils present Neck: Neck: supple Resp: Auscultation: clear to auscultation bilaterally Cardio: Rate: regular rate GI: GI Palp: Yes Soft to palpation, No Firmness to palpation present (GI) and No Tenderness to palpation present (GI) Auscultation: normal bowel sounds Other: obese Urinary Catheter: Urinary Catheter: patent and draining Skin: General skin exam: no rashes or lesions noted Neuro: Other: awake and alert Extrem: General: pedal edema bilaterally Psych: Affect: Anxious affect present Objective Data Vital Signs Vital Signs: Vital Signs - 24 hr 12/14/21 20:00 12/14/21 21:00 12/14/21 21:03 Temperature 97.7 F Pulse Rate 88 89 Respiratory Rate 20 Blood Pressure 141/65 H Pulse Oximetry 92 12/15/21 00:00 12/15/21 01:26 12/15/21 04:00 Temperature Pulse Rate 83 88 Respiratory Rate Blood Pressure Pulse Oximetry 92 12/15/21 06:20 12/15/21 08:00 12/15/21 08:36 Temperature 98.6 F Pulse Rate 86 111 H 116 H Respiratory Rate 17 Blood Pressure 147/59 H Pulse Oximetry 94 12/15/21 12:00 12/15/21 14:00 12/15/21 14:02 Temperature 98 F Pulse Rate 97 89 Respiratory Rate 16 Blood Pressure 145/52 H 141/69 H Pulse Oximetry 95 12/15/21 14:04 Temperature Pulse Rate Respiratory Rate Blood Pressure 147
--- NOTE | 2021-12-15 16:43 | PC.NURSE ---
Electromechanical Assembler spoke with provider Erick Morales NP regarding pt aspiration site with large amount of serosang drainage, pt denies pain, area has no s/s infection, dry dressing re-applied.
[2021-12-16] VITALS (9 sets, daily range): BP systolic 121–138; BP diastolic 62–71; PULSE 76–92; RESP 16–20; TEMP 36.2–36.6; O2SAT 93–97
[2021-12-16 07:11] LABS: Basophils Percent Auto 0.3 % (0.2-1.2); Hemoglobin 7.8 g/dL (12.0-15.0); Immature Granulocyte Absolute 0.62 K/mm3 (0.00-0.031); Immature Granulocyte Percent A 5.3 % (0-0.5); Immature Platelet Fraction Pct 20.8 % (0.9-11.2); Lymphocytes Absolute Auto 2.85 K/mm3 (0.9-3.2); Lymphocytes Percent Auto 24.4 % (18.3-44.2); Mean Corpuscular HGB Conc 32.5 g/dl (32-36); Mean Corpuscular Hemoglobin 27.4 pg (26-34); Mean Corpuscular Volume 84.2 fl (80-100); Monocytes Absolute Auto 0.9 K/mm3 (0.1-0.6); Monocytes Percent Auto 7.9 % (2.6-8.5); Neutrophils Absolute Auto 7.3 K/mm3 (1.3-6.7); Neutrophils Percent Auto 62.1 % (45.5-73.1); Nucleated Red Blood Cells Absolute Auto 0.6 K/mm3 (0.0-0.012); Nucleated Red Blood Cells Perc 5.5 % (0.0-0.2); Platelet Count Result 60 k/mm3 (150-375); Red Blood Count 2.85 M/mm3 (4.2-5.4); Red Cell Distribution Width 23.3 % (11.5-14.5); White Blood Count 11.7 K/mm3 (4.5-10.0)
[2021-12-16 07:24] LABS: Alanine Aminotransferase 32 U/L (4-35); Albumin Level 2.1 g/dL (3.5-5.1); Alkaline Phosphatase 311 U/L (38-126); Anion Gap 8 mmol/L (8-16); Aspartate Amino Transferase 40 U/L (14-36); Blood Urea Nitrogen 28 mg/dL (7-17); Calcium 8.5 mg/dL (8.4-10.2); Carbon Dioxide 28 mmol/L (22-30); Chloride 107 mmol/L (98-107); Estimated CRCL calculation 57 ml/min; Estimated Glomerular Filt Rate > 60; Glucose 242 mg/dL (65-110); Magnesium 2.2 mg/dL (1.6-2.3); Potassium 3.5 mmol/L (3.4-5.0); Sodium 143 mmol/L (137-145)
[2021-12-16 08:13] LABS: Anisocytosis 1+ (NORMAL); Hypochromasia 1+ (NORMAL); Platelet Estimate Decreased (Adequate); Target Cells 2+ (NORMAL)
[2021-12-16 08:14] LABS: Atypical Lymphocytes Present
--- NOTE | 2021-12-16 08:45 | P.PNIM_ITS ---
Progress Note: A&P Assessment and Plan (1) Anemia: Qualifiers: Anemia type: unspecified type Qualified Code(s): D64.9 - Anemia, unspecified Code(s): D64.9 - Anemia, unspecified Status: Acute Assessment and Plan: * Current H/H 7.8/24.0 * Anemia labs: Iron 18, TIBC 128, % sat 14, Ferritin > 2000.00 * Continue home ferrous sulfate * 3 bags of IV iron per oncology * Oncology consulted thank your help * 1 Unit of PRBC on 12/13/21 * Trend H/H * Transfuse as indicated (2) Syncope: Qualifiers: Syncope type: unspecified Qualified Code(s): R55 - Syncope and collapse Code(s): R55 - Syncope and collapse Status: Acute Assessment and Plan: * Likely multifactorial: anemia, post-COVID, poor nutrition, intra-abdominal and pelvic masses * 12/13 recurrence while bathing * orthostatic blood pressure: Laying, Sitting, Standing * head CT negative * Carotid doppler <50% stenosis bilateral * Echo 60-65% with a grade 1 diastolic dysfunction * Does seem to get dizzy with position changes * Meclizine 25mg PO QID (3) Abdominal ascites: Qualifiers: Ascites type: other type Qualified Code(s): R18.8 - Other ascites Code(s): R18.8 - Other ascites Status: Acute Assessment and Plan: * CT found moderate ascites * Paracentesis cancelled, ultrasound only found small amount of ascites * Likely malignant * Unable to obtain fluid with u/s * Spironolactone 50mg PO (4) Cirrhosis of liver: Qualifiers: Ascites presence: with ascites Hepatic cirrhosis type: unspecified h epatic cirrhosis Qualified Code(s): K74.60 - Unspecified cirrhosis of liver; R18.8 - Other ascites Code(s): K74.60 - Unspecified cirrhosis of liver Status: Acute Assessment and Plan: * Found on the CT * Continue furosemide spironolactone and lactulose. * 12/13 additional 20 mg IV furosemide x1 * BNP elevated at 5350 * Wonder if there is a component of CHF * Ammonia <9 * bilirubin appears to continue to climb, continue to trend (5) B-cell lymphoma of spleen: Qualifiers: B-cell lymphoma type: unspecified B-cell Qualified Code(s): C85.17 - Unspecified B-cell lymphoma, spleen Code(s): C85.17 - Unspecified B-cell lymphoma, spleen Status: Acute Assessment and Plan: * Likely recurrent * Bone marrow biopsy performed on 12/14/21 * wound care * Monitor drainage * Scheduled for today * Dr. Tam consulted (6) Congestive heart failure: Code(s): I50.9 - Heart failure, unspecified Status: Acute Assessment and Plan: * BNP elevated at 5350 * 1+ pitting edema noted on exam * Lasix, spironolactone on board * Echo 60-65% with grade 1 DD, which would make this an acute exacerbation of diastolic heart failure. * Continue home metoprolol (7) Tachycardia: Code(s): R00.0 - Tachycardia, unspecified Status: Acute Assessment and Plan: * HR is 100-120 with activity * Metoprolol 50mg PO Daily * Seems to usually be controlled * Trend HR * Adjust therapy as indicated Time Spent With Patient Time with patient: Greater than 35 minutes Subjective Date/time seen: 12/16/21 0845 Interval history: Date/Time: 12/11/21 09:14 Denia was resting in bed this morning when I went to examine her and visit with her. She did seem confused and changed her
--- NOTE | 2021-12-16 08:45 | PM.IMPN ---
Progress Note: A&P Assessment and Plan (1) Anemia: Qualifiers: Anemia type: unspecified type Qualified Code(s): D64.9 - Anemia, unspecified Code(s): D64.9 - Anemia, unspecified Status: Acute Assessment and Plan: Current H/H 7.8/24.0 Anemia labs: Iron 18, TIBC 128, % sat 14, Ferritin > 2000.00 Continue home ferrous sulfate 3 bags of IV iron per oncology Oncology consulted thank your help 1 Unit of PRBC on 12/13/21 Trend H/H Transfuse as indicated (2) Syncope: Qualifiers: Syncope type: unspecified Qualified Code(s): R55 - Syncope and collapse Code(s): R55 - Syncope and collapse Status: Acute Assessment and Plan: Likely multifactorial: anemia, post-COVID, poor nutrition, intra-abdominal and pelvic masses 12/13 recurrence while bathing orthostatic blood pressure: Laying, Sitting, Standing head CT negative Carotid doppler <50% stenosis bilateral Echo 60-65% with a grade 1 diastolic dysfunction Does seem to get dizzy with position changes Meclizine 25mg PO QID (3) Abdominal ascites: Qualifiers: Ascites type: other type Qualified Code(s): R18.8 - Other ascites Code(s): R18.8 - Other ascites Status: Acute Assessment and Plan: CT found moderate ascites Paracentesis cancelled, ultrasound only found small amount of ascites Likely malignant Unable to obtain fluid with u/s Spironolactone 50mg PO (4) Cirrhosis of liver: Qualifiers: Ascites presence: with ascites Hepatic cirrhosis type: unspecified hepatic cirrhosis Qualified Code(s): K74.60 - Unspecified cirrhosis of liver; R18.8 - Other ascites Code(s): K74.60 - Unspecified cirrhosis of liver Status: Acute Assessment and Plan: Found on the CT Continue furosemide spironolactone and lactulose. 12/13 additional 20 mg IV furosemide x1 BNP elevated at 5350 Wonder if there is a component of CHF Ammonia <9 bilirubin appears to continue to climb, continue to trend (5) B-cell lymphoma of spleen: Qualifiers: B-cell lymphoma type: unspecified B-cell Qualified Code(s): C85.17 - Unspecified B-cell lymphoma, spleen Code(s): C85.17 - Unspecified B-cell lymphoma, spleen Status: Acute Assessment and Plan: Likely recurrent Bone marrow biopsy performed on 12/14/21 wound care Monitor drainage Scheduled for today Dr. Tam consulted (6) Congestive heart failure: Code(s): I50.9 - Heart failure, unspecified Status: Acute Assessment and Plan: BNP elevated at 5350 1+ pitting edema noted on exam Lasix, spironolactone on board Echo 60-65% with grade 1 DD, which would make this an acute exacerbation of diastolic heart failure. Continue home metoprolol (7) Tachycardia: Code(s): R00.0 - Tachycardia, unspecified Status: Acute Assessment and Plan: HR is 100-120 with activity Metoprolol 50mg PO Daily Seems to usually be controlled Trend HR Adjust therapy as indicated Time Spent With Patient Time with patient: Greater than 35 minutes Subjective Date/time seen: 12/16/21 0845 Interval history: Date/Time: 12/11/21 09:14 Denia was resting in bed this morning when I went to examine her and visit with her. She did seem confused and changed her answers often regarding her health history. She was unable to tell me if she lived at home or in assisted living and at one point said she lived at [place]. She has 3+ pitting edema to her lower extremities but is having no difficulty breathing. She denies any abdominal pain during my exam even with palpation. I called and spoke with her daughter Nya Almonte. Denia has been living at home, the same home she has been in for 60+ years with her , the same home that she built with her . Her approximately 20 years ago. Nya chaney
[2021-12-16] MEDS: LACTULOSE 20 GM/30 ML UDC PO (09:07)
[2021-12-16] MEDS: MULTIVITAMINS /C LUTEIN (CENTRUM SILVER) TABLET *BKC 1 TAB PO (09:07)
[2021-12-16] MEDS: LIDOCAINE 5% PATCH 3 PATCH TRANSDERM (09:07)
[2021-12-16] MEDS: SPIRONOLACTONE 50 MG TABLET PO (09:08)
[2021-12-16] MEDS: FUROSEMIDE 20 MG TABLET PO (09:08)
[2021-12-16] MEDS: METOPROLOL SUCCINATE EXT REL 50 MG TABCR PO (09:08)
[2021-12-16] MEDS: PANTOPRAZOLE 40 MG TABLET PO (09:08)
[2021-12-16] MEDS: FERROUS SULFATE DRIED 142 MG TABCR PO (09:08)
[2021-12-16] MEDS: TOLNAFTATE 1% POWDER 45 GM BTL 1 APPLIC TOPICAL ×2 (09:09→20:02)
--- NOTE | 2021-12-16 12:05 | WPDGIPROGNO ---
Progress Note: A&P Assessment and Plan (1) Decompensation of cirrhosis of liver: Code(s): K72.90 - Hepatic failure, unspecified without coma; K74.60 - Unspecified cirrhosis of liver Status: Acute Assessment and Plan: she had prolonged hospitalization last month at another facility after had COVID infection, also had colonoscopy at another hospital only small amount of ascites not enough to get paracentesis ? [facility] cirrhosis, hepatitis panel negative [place], call if questions (2) Elevated liver enzymes: Code(s): R74.8 - Abnormal levels of other serum enzymes Status: Acute Assessment and Plan: persistent elevated liver enzymes from liver disease, also could be from lymphoma oncology on board, BM biopsy result pending (3) Abdominal pain: Code(s): R10.9 - Unspecified abdominal pain Status: Acute Assessment and Plan: this is resolved and she has been eating (4) Encephalopathy acute: Code(s): G93.40 - Encephalopathy, unspecified Status: Acute Assessment and Plan: improved ? back to baseline (5) B-cell lymphoma of spleen: Qualifiers: B-cell lymphoma type: unspecified B-cell Qualified Code(s): C85.17 - Unspecified B-cell lymphoma, spleen Code(s): C85.17 - Unspecified B-cell lymphoma, spleen Status: Acute Assessment and Plan: oncology on board, s/p BM biopsy (6) Anemia: Qualifiers: Anemia type: unspecified type Qualified Code(s): D64.9 - Anemia, unspecified Code(s): D64.9 - Anemia, unspecified Status: Acute Assessment and Plan: multifactorial from cirrhosis, lymphoma and recent covid infection had colonoscopy at outside hospital no overt gib (7) Abdominal ascites: Qualifiers: Ascites type: other type Qualified Code(s): R18.8 - Other ascites Code(s): R18.8 - Other ascites Status: Acute Assessment and Plan: small amount- not enough for paracentesis on low dose of diuretics 2g na diet (8) COVID-19: Code(s): U07.1 - COVID-19 Status: Acute Assessment and Plan: few weeks ago and required prolonged hospitalization Subjective Date/time seen: 12/16/21 12:05 Interval history: no major changes, still weak Review of Systems Review of Systems: All systems reviewed & are unremarkable except as noted in HPI and below Exam Const: General: ill appearing chronically Other: comfortable, awake and alert HENMT: General nose exam: Normal nares present Eyes: Pupils: Equal, round and reactive pupils present Neck: Neck: supple Resp: Auscultation: clear to auscultation bilaterally Cardio: Rate: regular rate GI: GI Palp: Yes Soft to palpation, No Firmness to palpation present (GI) and No Tenderness to palpation present (GI) Auscultation: normal bowel sounds Other: obese Urinary Catheter: Urinary Catheter: patent and draining Skin: General skin exam: no rashes or lesions noted Neuro: Other: awake and alert Extrem: General: pedal edema bilaterally Psych: Affect: Anxious affect present Objective Data Vital Signs Vital Signs: Vital Signs - 24 hr 12/15/21 14:00 12/15/21 14:02 12/15/21 14:04 Temperature 98 F Pulse Rate 89 Respiratory Rate 16 Blood Pressure 145/52 H 141/69 H 147/88 H Pulse Oximetry 95 12/15/21 16:00 12/15/21 19:25 12/15/21 20:00 Temperature 97.7 F Pulse Rate 88 87 78 Respiratory Rate 17 Blood Pressure 127/81 Pulse Oximetry 95 12/15/21 21:24 12/16/21 00:00 12/16/21 04:00 Temperature Pulse Rate 86 89 Respiratory Rate Blood Pressure Pulse Oximetry 94 12/16/21 05:34 12/16/21 08:00 Temperature 97.6 F Pulse Rate 92 82 Respiratory Rate 16 Blood Pressure 124/62 Pulse Oximetry 97 Intake/Output Intake/Output: Intake & Output 12/13/21 12/14/21 12/15/21 12/16/21 23:59 23:59 23:59 23:59 Intake Total 3694 537 6720 165 Output Total 350
[2021-12-16 20:19] LABS: Glucose Point of Care 267 mg/dl (65-105)
[2021-12-17] VITALS (10 sets, daily range): BP systolic 146–148; BP diastolic 60–62; PULSE 77–110; RESP 18; TEMP 36.9–37; O2SAT 95–97
[2021-12-17 07:40] LABS: Glucose Point of Care 212 mg/dl (65-105)
[2021-12-17 08:22] LABS: Alanine Aminotransferase 34 U/L (4-35); Albumin Level 2.1 g/dL (3.5-5.1); Alkaline Phosphatase 307 U/L (38-126); Anion Gap 4 mmol/L (8-16); Aspartate Amino Transferase 47 U/L (14-36); Bilirubin,Total 9.2 mg/dL (0.2-1.3); Blood Urea Nitrogen 29 mg/dL (7-17); Calcium 8.4 mg/dL (8.4-10.2); Carbon Dioxide 30 mmol/L (22-30); Chloride 108 mmol/L (98-107); Estimated CRCL calculation 51 ml/min; Estimated Glomerular Filt Rate > 60; Glucose 228 mg/dL (65-110); Magnesium 2.1 mg/dL (1.6-2.3); Potassium 3.2 mmol/L (3.4-5.0); Sodium 142 mmol/L (137-145)
[2021-12-17] MEDS: FUROSEMIDE 20 MG TABLET PO (08:43)
[2021-12-17] MEDS: METOPROLOL SUCCINATE EXT REL 50 MG TABCR PO (08:43)
[2021-12-17] MEDS: FERROUS SULFATE DRIED 142 MG TABCR PO (08:43)
[2021-12-17] MEDS: LIDOCAINE 5% PATCH 3 PATCH TRANSDERM (08:43)
[2021-12-17] MEDS: TOLNAFTATE 1% POWDER 45 GM BTL 1 APPLIC TOPICAL ×2 (08:44→19:35)
[2021-12-17] MEDS: SPIRONOLACTONE 50 MG TABLET PO (08:44)
[2021-12-17 09:03] LABS: Basophils Percent Auto 0.2 % (0.2-1.2); Hematocrit 24.7 % (37.0-47.0); Hemoglobin 7.8 g/dL (12.0-15.0); Immature Granulocyte Absolute 0.53 K/mm3 (0.00-0.031); Immature Granulocyte Percent A 4.4 % (0-0.5); Immature Platelet Fraction Pct 26.7 % (0.9-11.2); Lymphocytes Absolute Auto 2.39 K/mm3 (0.9-3.2); Lymphocytes Percent Auto 19.9 % (18.3-44.2); Mean Corpuscular HGB Conc 31.6 g/dl (32-36); Mean Corpuscular Hemoglobin 27.5 pg (26-34); Monocytes Absolute Auto 0.8 K/mm3 (0.1-0.6); Monocytes Percent Auto 6.5 % (2.6-8.5); Neutrophils Absolute Auto 8.3 K/mm3 (1.3-6.7); Nucleated Red Blood Cells Absolute Auto 0.9 K/mm3 (0.0-0.012); Nucleated Red Blood Cells Perc 7.2 % (0.0-0.2); Platelet Count Result 51 k/mm3 (150-375); Red Blood Count 2.84 M/mm3 (4.2-5.4); Red Cell Distribution Width 23.5 % (11.5-14.5)
--- NOTE | 2021-12-17 10:45 | PM.IMPN ---
Progress Note: A&P Assessment and Plan (1) Anemia: Qualifiers: Anemia type: unspecified type Qualified Code(s): D64.9 - Anemia, unspecified Code(s): D64.9 - Anemia, unspecified Status: Acute Assessment and Plan: Current H/H 7.8/24.0 Anemia labs: Iron 18, TIBC 128, % sat 14, Ferritin > 2000.00 Continue home ferrous sulfate 3 bags of IV iron per oncology Oncology consulted thank your help 1 Unit of PRBC on 12/13/21 Trend H/H Transfuse as indicated (2) Syncope: Qualifiers: Syncope type: unspecified Qualified Code(s): R55 - Syncope and collapse Code(s): R55 - Syncope and collapse Status: Acute Assessment and Plan: Likely multifactorial: anemia, post-COVID, poor nutrition, intra-abdominal and pelvic masses 12/13 recurrence while bathing orthostatic blood pressure: Laying, Sitting, Standing head CT negative Carotid doppler <50% stenosis bilateral Echo 60-65% with a grade 1 diastolic dysfunction Does seem to get dizzy with position changes Meclizine 25mg PO QID (3) Abdominal ascites: Qualifiers: Ascites type: other type Qualified Code(s): R18.8 - Other ascites Code(s): R18.8 - Other ascites Status: Acute Assessment and Plan: CT found moderate ascites Paracentesis cancelled, ultrasound only found small amount of ascites Likely malignant Unable to obtain fluid with u/s Spironolactone 50mg PO (4) Cirrhosis of liver: Qualifiers: Ascites presence: with ascites Hepatic cirrhosis type: unspecified hepatic cirrhosis Qualified Code(s): K74.60 - Unspecified cirrhosis of liver; R18.8 - Other ascites Code(s): K74.60 - Unspecified cirrhosis of liver Status: Acute Assessment and Plan: Found on the CT Continue furosemide spironolactone and lactulose. 12/13 additional 20 mg IV furosemide x1 BNP elevated at 5350 Wonder if there is a component of CHF Ammonia <9 bilirubin appears to continue to climb, continue to trend (5) B-cell lymphoma of spleen: Qualifiers: B-cell lymphoma type: unspecified B-cell Qualified Code(s): C85.17 - Unspecified B-cell lymphoma, spleen Code(s): C85.17 - Unspecified B-cell lymphoma, spleen Status: Acute Assessment and Plan: Likely recurrent Bone marrow biopsy performed on 12/14/21 wound care Monitor drainage Scheduled for today Dr. Tam consulted (6) Congestive heart failure: Code(s): I50.9 - Heart failure, unspecified Status: Acute Assessment and Plan: BNP elevated at 5350 1+ pitting edema noted on exam Lasix, spironolactone on board Echo 60-65% with grade 1 DD, which would make this an acute exacerbation of diastolic heart failure. Continue home metoprolol (7) Tachycardia: Code(s): R00.0 - Tachycardia, unspecified Status: Acute Assessment and Plan: HR is 100-120 with activity Metoprolol 50mg PO Daily Seems to usually be controlled Trend HR Adjust therapy as indicated (8) Elevated bilirubin: Code(s): R17 - Unspecified jaundice Status: Acute Assessment and Plan: Bilirubin trending up and is 8.0 today She will need to see a liver specialist outpatient Secondary to cirrhosis (9) Lymphoma: Code(s): C85.90 - Non-Hodgkin lymphoma, unspecified, unspecified site Status: Acute Assessment and Plan: is on the case He has set her up with outpatient treatment Biopsy showed an atypical B-Cell (10) Hyperglycemia: Code(s): R73.9 - Hyperglycemia, unspecified Status: Acute Assessment and Plan: Glucose has been high Do not see where she is being treated at home for this A1c in the am Continue to trend labs add ISS Time Spent With Patient Time with patient: Greater than 35 minutes Subjective Date/time seen:
--- NOTE | 2021-12-17 10:45 | P.PNIM_ITS ---
Progress Note: A&P Assessment and Plan (1) Anemia: Qualifiers: Anemia type: unspecified type Qualified Code(s): D64.9 - Anemia, unspecified Code(s): D64.9 - Anemia, unspecified Status: Acute Assessment and Plan: * Current H/H 7.8/24.0 * Anemia labs: Iron 18, TIBC 128, % sat 14, Ferritin > 2000.00 * Continue home ferrous sulfate * 3 bags of IV iron per oncology * Oncology consulted thank your help * 1 Unit of PRBC on 12/13/21 * Trend H/H * Transfuse as indicated (2) Syncope: Qualifiers: Syncope type: unspecified Qualified Code(s): R55 - Syncope and collapse Code(s): R55 - Syncope and collapse Status: Acute Assessment and Plan: * Likely multifactorial: anemia, post-COVID, poor nutrition, intra-abdominal and pelvic masses * 12/13 recurrence while bathing * orthostatic blood pressure: Laying, Sitting, Standing * head CT negative * Carotid doppler <50% stenosis bilateral * Echo 60-65% with a grade 1 diastolic dysfunction * Does seem to get dizzy with position changes * Meclizine 25mg PO QID (3) Abdominal ascites: Qualifiers: Ascites type: other type Qualified Code(s): R18.8 - Other ascites Code(s): R18.8 - Other ascites Status: Acute Assessment and Plan: * CT found moderate ascites * Paracentesis cancelled, ultrasound only found small amount of ascites * Likely malignant * Unable to obtain fluid with u/s * Spironolactone 50mg PO (4) Cirrhosis of liver: Qualifiers: Ascites presence: with ascites Hepatic cirrhosis type: unspecified h epatic cirrhosis Qualified Code(s): K74.60 - Unspecified cirrhosis of liver; R18.8 - Other ascites Code(s): K74.60 - Unspecified cirrhosis of liver Status: Acute Assessment and Plan: * Found on the CT * Continue furosemide spironolactone and lactulose. * 12/13 additional 20 mg IV furosemide x1 * BNP elevated at 5350 * Wonder if there is a component of CHF * Ammonia <9 * bilirubin appears to continue to climb, continue to trend (5) B-cell lymphoma of spleen: Qualifiers: B-cell lymphoma type: unspecified B-cell Qualified Code(s): C85.17 - Unspecified B-cell lymphoma, spleen Code(s): C85.17 - Unspecified B-cell lymphoma, spleen Status: Acute Assessment and Plan: * Likely recurrent * Bone marrow biopsy performed on 12/14/21 * wound care * Monitor drainage * Scheduled for today * Dr. Tam consulted (6) Congestive heart failure: Code(s): I50.9 - Heart failure, unspecified Status: Acute Assessment and Plan: * BNP elevated at 5350 * 1+ pitting edema noted on exam * Lasix, spironolactone on board * Echo 60-65% with grade 1 DD, which would make this an acute exacerbation of diastolic heart failure. * Continue home metoprolol (7) Tachycardia: Code(s): R00.0 - Tachycardia, unspecified Status: Acute Assessment and Plan: * HR is 100-120 with activity * Metoprolol 50mg PO Daily * Seems to usually be controlled * Trend HR * Adjust therapy as indicated (8) Elevated bilirubin: Code(s): R17 - Unspecified jaundice Status: Acute Assessment and Plan: * Bilirubin trending up and is 8.0 today * She will need to see a liver specialist outpatient * Secondary to cirrhosis (9) Lymphoma:
[2021-12-17 10:55] LABS: Hypochromasia 1+ (NORMAL); Platelet Estimate Decreased (Adequate); Target Cells 2+ (NORMAL)
[2021-12-17 11:26] LABS: Glucose Point of Care 273 mg/dl (65-105)
[2021-12-17 11:40] LABS: Ammonia < 9 umol/L (9-30)
--- NOTE | 2021-12-17 12:54 | WPDONCPN ---
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 Bone marrow biopsy was performed on December 14 that showed atypical B-cell population detected. Complete report is pending. This is compatible but with relapsed lymphoma. Based on the final pathology will decide about treatment. She possibly could be a candidate for single agent Rituxan given her poor performance status. She will follow-up with us in the office for further discussion of the final pathology and treatment. Anemia. Multifactorial. Hemoglobin stable. Patient will continue ferrous sulfate. Liver cirrhosis and ascites. Dr. Landry note reviewed. Possibility of lymphoma involving the liver. We plan to start her on Rituxan treatment as an outpatient and will add chemotherapy based on her tolerance. - Time Spent With Patient Total time spent is greater than 50% in coordination of care (as documented) at patient's floor/unit and/or counseling patient: 15 - 25 minutes Subjective Interval history: Anemia and thrombocytopenia History of splenic marginal zone lymphoma Liver cirrhosis Review of Systems - Review of Systems Patient remains quite tired and fatigued. She is still having some pain in the abdomen. Denies any bleeding. She is eating poorly. Denies any shortness of breath. No fevers and chills. - Neurologic Reports hearing normal, Reports weakness, Denies headache(s) Exam Narrative: Lungs are clear to auscultation bilaterally Cardiovascular regular rate rhythm no murmurs Abdomen soft nontender nondistended bowel sounds are positive Extremities no edema PN: Objective Data - Labs CBC & Chem 7: 12/17/21 08:01 12/17/21 08:01 Labs: Laboratory Results - last 24 hr 12/16/21 12/17/21 12/17/21 20:04 07:38 08:01 WBC 12.0 H RBC 2.84 L Hgb 7.8 L Hct 24.7 L MCV 87.0 MCH 27.5 MCHC 31.6 L RDW 23.5 H Plt Count 51 L MPV TNP Immature Gran % (Auto) 4.4 H Neut % (Auto) 69.0 Lymph % (Auto) 19.9 [place] % (Auto) 6.5 Eos % (Auto) 0.0 Baso % (Auto) 0.2 Lymph # (Auto) 2.39 [place] # (Auto) 0.8 H Eos # (Auto) 0.0 Baso # (Auto) 0.0 Abs Immat Gran (auto) 0.53 H Absolute Neuts (auto) 8.3 H Absolute Nucleated RBC 0.9 H Nucleated RBC % 7.2 H Platelet Estimate Decreased % Immature Plt Fraction 26.7 H Hypochromasia 1+ Target Cells 2+ Sodium Potassium Chloride Carbon Dioxide Anion Gap BUN Creatinine Estim Creat Clear Calc Estimated GFR Glucose POC Capillary Glucose 267 H 212 H Calcium Magnesium Total Bilirubin AST ALT Alkaline Phosphatase Ammonia Total Protein Albumin 12/17/21 12/17/21 12/17/21 08:01 11:14 11:23 WBC RBC Hgb Hct MCV MCH MCHC RDW Plt Count MPV Immature Gran % (Auto) Neut % (Auto) Lymph % (Auto) [place] % (Auto) Eos % (Auto) Baso % (Auto) Lymph # (Auto) [place] # (Auto) Eos # (Auto) Baso # (Auto) Abs Immat Gran (auto) Absolute Neuts (auto) Absolute Nucleated RBC Nucleated RBC % Platelet Estimate % Immature Plt Fraction Hypochromasia Target Cells Sodium 142 Potassium 3.2 L Chloride 108 H Carbon Dioxide 30 Anion Gap 4 L BUN 29 H Creatinine 0.90 Estim Creat Clear Calc 51 Estimated GFR > 60 Glucose 228 H POC Capillary Glucose 273 H Calcium 8.4 Magnesium 2.1 Total Bilirubin 9.2 H AST 47 H ALT 34 Alkaline Phosphatase 307 H Ammonia < 9 L Total Protein 4.0 L Albumin 2.1 L
--- NOTE | 2021-12-17 14:50 | PCPTNOTE ---
Attempted to see patient for PT treatment this afternoon, treatment unable to be completed at this time. Patient was turned over on her right side/stomach when therapy entered room, attempted to have patient turn over to supine to participate with therapy however patient would not turn over or participate, and reported her stomach hurt. Patient stated please and I don't want to. However patient looked uncomfortable in bed, assisted nursing to reposition patient to left side to relieve right side.
[2021-12-17] MEDS: POTASSIUM CHLORIDE 20 MEQ PACKET (FOR LIQUID) 40 MEQ PO (15:13)
[2021-12-17 16:41] LABS: Glucose Point of Care 288 mg/dl (65-105)
[2021-12-17 20:04] LABS: Glucose Point of Care 262 mg/dl (65-105)
[2021-12-18] VITALS (7 sets, daily range): BP systolic 135; BP diastolic 67; PULSE 86–119; RESP 16; TEMP 36.4; O2SAT 93–98
[2021-12-18] MEDS: KETOROLAC 15 MG/ML VIAL (*BKC) IV PUSH (00:28)
[2021-12-18 05:56] LABS: Alanine Aminotransferase 34 U/L (4-35); Albumin Level 2.1 g/dL (3.5-5.1); Alkaline Phosphatase 286 U/L (38-126); Anion Gap 10 mmol/L (8-16); Aspartate Amino Transferase 45 U/L (14-36); Blood Urea Nitrogen 35 mg/dL (7-17); Calcium 8.6 mg/dL (8.4-10.2); Carbon Dioxide 27 mmol/L (22-30); Chloride 108 mmol/L (98-107); Estimated CRCL calculation 46 ml/min; Estimated Glomerular Filt Rate 54; Glucose 263 mg/dL (65-110); Magnesium 2.1 mg/dL (1.6-2.3); Potassium 3.4 mmol/L (3.4-5.0); Sodium 145 mmol/L (137-145)
[2021-12-18 06:05] LABS: Basophils Percent Auto 0.2 % (0.2-1.2); Hematocrit 23.8 % (37.0-47.0); Hemoglobin 7.6 g/dL (12.0-15.0); Immature Granulocyte Absolute 0.58 K/mm3 (0.00-0.031); Immature Granulocyte Percent A 4.5 % (0-0.5); Immature Platelet Fraction Pct 29.1 % (0.9-11.2); Lymphocytes Absolute Auto 2.54 K/mm3 (0.9-3.2); Lymphocytes Percent Auto 19.7 % (18.3-44.2); Mean Corpuscular HGB Conc 31.9 g/dl (32-36); Mean Corpuscular Hemoglobin 27.3 pg (26-34); Mean Corpuscular Volume 85.6 fl (80-100); Monocytes Absolute Auto 0.7 K/mm3 (0.1-0.6); Monocytes Percent Auto 5.7 % (2.6-8.5); Neutrophils Percent Auto 69.9 % (45.5-73.1); Nucleated Red Blood Cells Absolute Auto 1.2 K/mm3 (0.0-0.012); Nucleated Red Blood Cells Perc 9.5 % (0.0-0.2); Platelet Count Result 43 k/mm3 (150-375); Red Blood Count 2.78 M/mm3 (4.2-5.4); Red Cell Distribution Width 23.9 % (11.5-14.5); White Blood Count 12.9 K/mm3 (4.5-10.0)
[2021-12-18 07:10] LABS: Platelet Estimate Decreased (Adequate)
[2021-12-18 07:11] LABS: Target Cells 2+ (NORMAL)
[2021-12-18 07:29] LABS: Glucose Point of Care 238 mg/dl (65-105)
--- NOTE | 2021-12-18 08:52 | PCPTNOTE ---
Attempted to see pt this AM. When therapy got to pts room she was on her left side saying I can't, I can't . Pt was difficult to understand as she was whispering. Will continue per plan of care.
--- NOTE | 2021-12-18 09:15 | PM.DS ---
DS: Admitting Diagnosis Discharge Date 12/18/21914 Admitting Diagnosis Cirrhosis, CHF exacerbation DS: Discharge Diagnosis Discharge Diagnosis (1) Anemia: Qualifiers: Anemia type: unspecified type Qualified Code(s): D64.9 - Anemia, unspecified Code(s): D64.9 - Anemia, unspecified Status: Acute Assessment and Plan: Current H/H 7.6/23.8 Anemia labs: Iron 18, TIBC 128, % sat 14, Ferritin > 2000.00 Continue home ferrous sulfate 3 bags of IV iron per oncology Oncology consulted thank your help 1 Unit of PRBC on 12/13/21 Trend H/H Transfuse as indicated (2) Syncope: Qualifiers: Syncope type: unspecified Qualified Code(s): R55 - Syncope and collapse Code(s): R55 - Syncope and collapse Status: Acute Assessment and Plan: Likely multifactorial: anemia, post-COVID, poor nutrition, intra-abdominal and pelvic masses 12/13 recurrence while bathing orthostatic blood pressure: Laying, Sitting, Standing head CT negative Carotid doppler <50% stenosis bilateral Echo 60-65% with a grade 1 diastolic dysfunction Does seem to get dizzy with position changes Meclizine 25mg PO QID (3) Abdominal ascites: Qualifiers: Ascites type: other type Qualified Code(s): R18.8 - Other ascites Code(s): R18.8 - Other ascites Status: Acute Assessment and Plan: CT found moderate ascites Paracentesis cancelled, ultrasound only found small amount of ascites Likely malignant Unable to obtain fluid with u/s Spironolactone 50mg PO (4) Cirrhosis of liver: Qualifiers: Ascites presence: with ascites Hepatic cirrhosis type: unspecified hepatic cirrhosis Qualified Code(s): K74.60 - Unspecified cirrhosis of liver; R18.8 - Other ascites Code(s): K74.60 - Unspecified cirrhosis of liver Status: Acute Assessment and Plan: Found on the CT Continue furosemide spironolactone and lactulose. 12/13 additional 20 mg IV furosemide x1 BNP elevated at 5350 Wonder if there is a component of CHF Ammonia <9 bilirubin appears to continue to climb, continue to trend (5) B-cell lymphoma of spleen: Qualifiers: B-cell lymphoma type: unspecified B-cell Qualified Code(s): C85.17 - Unspecified B-cell lymphoma, spleen Code(s): C85.17 - Unspecified B-cell lymphoma, spleen Status: Acute Assessment and Plan: Likely recurrent Bone marrow biopsy performed on 12/14/21 wound care Monitor drainage Scheduled for today Dr. Tam consulted (6) Congestive heart failure: Code(s): I50.9 - Heart failure, unspecified Status: Acute Assessment and Plan: BNP elevated at 5350 1+ pitting edema noted on exam Lasix, spironolactone on board Echo 60-65% with grade 1 DD, which would make this an acute exacerbation of diastolic heart failure. Continue home metoprolol (7) Tachycardia: Code(s): R00.0 - Tachycardia, unspecified Status: Acute Assessment and Plan: HR is 100-120 with activity Metoprolol 50mg PO Daily Seems to usually be controlled Trend HR Adjust therapy as indicated (8) Elevated bilirubin: Code(s): R17 - Unspecified jaundice Status: Acute Assessment and Plan: Bilirubin trending up and is 11.0 today She will need to see a liver specialist outpatient Secondary to cirrhosis DS: Summary Hospital Course Hospital Course: Patient is a 76 year old female with a past medical history of COVID, cirrhosis of the liver, encephalopathy, and lymphoma who presented to the ED for acute metabolic encephalopathy. It was noted that the patient went to the ED the day prior to admission for abdominal pain. She was discharged with pain medications. Arrival at home patient was given norco, and became unresponsive, lethargic, and unarousable. She is status post discharge from
--- NOTE | 2021-12-18 09:15 | P.DS_ITS ---
DS: Admitting Diagnosis Discharge Date 12/18/21914 Admitting Diagnosis Cirrhosis, CHF exacerbation DS: Discharge Diagnosis Discharge Diagnosis (1) Anemia: Qualifiers: Anemia type: unspecified type Qualified Code(s): D64.9 - Anemia, unspecified Code(s): D64.9 - Anemia, unspecified Status: Acute Assessment and Plan: * Current H/H 7.6/23.8 * Anemia labs: Iron 18, TIBC 128, % sat 14, Ferritin > 2000.00 * Continue home ferrous sulfate * 3 bags of IV iron per oncology * Oncology consulted thank your help * 1 Unit of PRBC on 12/13/21 * Trend H/H * Transfuse as indicated (2) Syncope: Qualifiers: Syncope type: unspecified Qualified Code(s): R55 - Syncope and collapse Code(s): R55 - Syncope and collapse Status: Acute Assessment and Plan: * Likely multifactorial: anemia, post-COVID, poor nutrition, intra-abdominal and pelvic masses * 12/13 recurrence while bathing * orthostatic blood pressure: Laying, Sitting, Standing * head CT negative * Carotid doppler <50% stenosis bilateral * Echo 60-65% with a grade 1 diastolic dysfunction * Does seem to get dizzy with position changes * Meclizine 25mg PO QID (3) Abdominal ascites: Qualifiers: Ascites type: other type Qualified Code(s): R18.8 - Other ascites Code(s): R18.8 - Other ascites Status: Acute Assessment and Plan: * CT found moderate ascites * Paracentesis cancelled, ultrasound only found small amount of ascites * Likely malignant * Unable to obtain fluid with u/s * Spironolactone 50mg PO (4) Cirrhosis of liver: Qualifiers: Ascites presence: with ascites Hepatic cirrhosis type: unspecified hepatic cirrhosis Qualified Code(s): K74.60 - Unspecified cirrhosis of liver; R18.8 - Other ascites Code(s): K74.60 - Unspecified cirrhosis of liver Status: Acute Assessment and Plan: * Found on the CT * Continue furosemide spironolactone and lactulose. * 2/ additional 20 mg IV furosemide x1 * BNP elevated at 5350 * Wonder if there is a component of CHF * Ammonia <9 * bilirubin appears to continue to climb, continue to trend (5) B-cell lymphoma of spleen: Qualifiers: B-cell lymphoma type: unspecified B-cell Qualified Code(s): C85.17 - Unspecified B-cell lymphoma, spleen Code(s): C85.17 - Unspecified B-cell lymphoma, spleen Status: Acute Assessment and Plan: * Likely recurrent * Bone marrow biopsy performed on 12/14/21 * wound care * Monitor drainage * Scheduled for today * Dr. Tam consulted (6) Congestive heart failure: Code(s): I50.9 - Heart failure, unspecified Status: Acute Assessment and Plan: * BNP elevated at 5350 * 1+ pitting edema noted on exam * Lasix, spironolactone on board * Echo 60-65% with grade 1 DD, which would make this an acute exacerbation of diastolic heart failure. * Continue home metoprolol (7) Tachycardia: Code(s): R00.0 - Tachycardia, unspecified Status: Acute Assessment and Plan: * HR is 100-120 with activity * Metoprolol 50mg PO Daily * Seems to usually be controlled * Trend HR * Adjust therapy as indicated (8) Elevated bilirubin: Code(s): R17 - Unspecified jaundice Status: Acute Assessment and Plan: * Bilirubin trending up and is 11.0 tod
[2021-12-18] MEDS: PANTOPRAZOLE 40 MG TABLET PO (09:16)
[2021-12-18] MEDS: METOPROLOL SUCCINATE EXT REL 50 MG TABCR PO (09:16)
[2021-12-18] MEDS: FUROSEMIDE 20 MG TABLET PO (09:16)
[2021-12-18] MEDS: LACTULOSE 20 GM/30 ML UDC PO (09:24)
[2021-12-18] MEDS: FERROUS SULFATE DRIED 142 MG TABCR PO (09:24)
[2021-12-18] MEDS: TOLNAFTATE 1% POWDER 45 GM BTL 1 APPLIC TOPICAL (09:24)
[2021-12-18] MEDS: LIDOCAINE 5% PATCH 3 PATCH TRANSDERM (09:24)
[2021-12-18] MEDS: SPIRONOLACTONE 50 MG TABLET PO (09:24)
[2021-12-18] MEDS: MULTIVITAMINS /C LUTEIN (CENTRUM SILVER) TABLET *BKC 1 TAB PO (09:24)
[2021-12-18 09:40] LABS: Hemoglobin A1C 6.4 % (<5.7)
[2021-12-18 12:00] LABS: Glucose Point of Care 272 mg/dl (65-105)
== END 2021-12-18 15:42 | DRG 840 ==
LOC: ANHED 12-11 04:46 → ANH2MED 12-11 05:42
PROVIDERS: Internal Medicine; Internal Medicine Hematology & Oncology; Nurse Practitioner; Radiology Diagnostic Radiology; Admitting Provider Internal Medicine; Emergency Provider Emergency Medicine; PCP Internal Medicine; Visit Provider Nurse Practitioner
PROC: 079T3ZX Drainage of Bone Marrow, Percutaneous Approach, Diagnostic (ICD-10-PCS; principal; 2021-12-14 09:05)
DX: C85.17 Unspecified B-cell lymphoma, spleen (principal); I50.33 Acute on chronic diastolic (congestive) heart failure; G93.41 Metabolic encephalopathy; R18.8 Other ascites; D64.9 Anemia, unspecified; U09.9 Post COVID-19 condition, unspecified; R55 Syncope and collapse; K74.60 Unspecified cirrhosis of liver; K72.90 Hepatic failure, unspecified without coma; R73.9 Hyperglycemia, unspecified; N63.10 Unspecified lump in the right breast, unspecified quadrant; R00.0 Tachycardia, unspecified; Z90.81 Acquired absence of spleen
CPT/HCPCS: 36415; 36430; 36600; 38222; 51701; 70450; 71045; 74177; 76705; 80053; 80074; 81001; 82140; 82607; 82728; 82805; 82948; 83036; 83540; 83550; 83615; 83690; 83735; 83880; 84100; 85014; 85018; 85025; 85027; 85055; 85610; 86140; 86850; 86860; 86870; 86880; 86900; 86901; 86902; 86922; 88184; 88185; 88305; 88311; 88313; 88342; 88360; 88364; 88365; 92610; 93005; 93306; 93880; 96361; 96374; 96375; 97161; 97165; 97530; 97535; 99285; A9270; C9803; G0378; J1644; J1756; J1885; J1940; J3480; J7030; J7050; P9016; Q9967; U0003; U0005